=== PATIENT | male | born 1970 | race Caucasian/White ===

== ENCOUNTER 2017-03-03 08:25 | Inpatient (IN) | payer BC ==
[~2017-03-03] VITALS: Ht 180.3 cm; Wt 122.5 kg
[~2017-03-03 08:25] MED LIST: AMLO10TA2 PO; ASPI-612 PO; ASPI-630 PO; ATOR20TA PO; ATOR20TA58 PO; CARV3.12 PO; FENO134C PO; FLUO20CA8 PO; LISI-334 PO; LISINOPRIL-HCTZ PO; Lisinopril PO; METF500T4 PO; METO100T2 PO; METO50TA2 PO; METR500T8 PO; PANT40TA3 PO; PANT40TA5 PO; PROM25TA10 PO
--- NOTE | 2017-03-03 08:53 | EKG ---
[address] [address] Test Date: 2017-03-03 Test Time: 08:39:15 Pat Name: AUGUSTINA CERVANTES Department: Room: Gender: M [employer]ist: BRENTON : 1970 Requested By: LEATHA CORTES Order Number: [id number] Reading MD: Measurements Intervals [place] Rate: 90 P: 38 MA: 148 QRS: 113 QRSD: 102 T: -25 QT: 362 QTc: 447 Interpretive Statements SINUS RHYTHM ABNORMAL RIGHT AXIS DEVIATION CONSIDER RIGHT VENTRICULAR HYPERTROPHY QRS(T) CONTOUR ABNORMALITY CONSIDER ANTEROLATERAL MYOCARDIAL DAMAGE CANNOT RULE OUT INFERIOR MYOCARDIAL DAMAGE RI6.01 Unconfirmed report No previous ECG available for comparison
--- NOTE | 2017-03-03 09:06 | RAD ---
Chest, 2 views, 03/03/2017: History: Chest pressure Comparison is made to a study from 11/01/2016. The heart size and pulmonary vascularity are normal. No pulmonary infiltrates are seen. There is no evidence of pleural fluid. Moderate hypertrophic spurring is present in the spine. IMPRESSION: No acute cardiopulmonary abnormality is detected.
[2017-03-03 09:09] LABS: BASO # 0.1 x10^3/uL (0.0-0.2); BASO % 1 % (0-3); EOS # 0.3 x10^3/uL (0.0-0.7); EOS % 4 % (0-3); HEMATOCRIT 43.6 % (39.0-53.0); HEMOGLOBIN 14.7 g/dL (13.0-17.5); LYMPH # 2.7 x10^3/uL (1.0-4.8); LYMPH % 32 % (24-48); MEAN CORPUSCULAR HEMOGLOBIN 26 pg (25-35); MEAN CORPUSCULAR HGB CONC 34 g/dL (31-37); MEAN CORPUSCULAR VOLUME 77 fL (79-100); MONO # 0.4 x10^3/uL (0.0-1.1); MONO % 5 % (0-9); NEUT # 4.9 x10^3uL (1.8-7.7); NEUT % 59 % (31-73); PLATELET COUNT 139 x10^3/uL (140-400); RED BLOOD COUNT 5.66 x10^6/uL (4.30-5.70); RED CELL DISTRIBUTION WIDTH 13.8 % (11.5-14.5); WHITE BLOOD COUNT 8.3 x10^3/uL (4.0-11.0)
--- NOTE | 2017-03-03 09:22 | ED.ADGEN ---
Past History Past Medical History: Diabetes, High Cholesterol, Hypertension, DC, Other Past Surgical History: No Surgical History Smoking: Cigarettes, Less than 1pk/day Alcohol Use: None Drug Use: None Adult General Chief Complaint Chief Complaint Chest pressure HPI HPI Patient is a 46-year-old male history of hypertension, dyslipidemia, diabetes and tobaccoism presents with central chest pain pressure for the past 12 hours and witnessed syncopal episode while at work. Patient was standing at the time of syncope. He denies hitting his head, headache, chest pain, shortness breath or palpitations preceding episode. Patient noted be hypertensive on ED arrival. Blood pressure is 165/100. Patient states he did not take his medications prior to ED arrival. Denies leg pain swelling DVT or PE. Patient's father had an DC under age 50. Review of Systems Review of Systems ROS as per HPI. Current Medications Current Medications Current Medications Medications (Trade) Dose Ordered Sig/Brenda Start Time Stop Time Status Last Admin Dose Admin Aspirin (Aspirin Enteric Coated) 324 mg 1X ONCE 03/03/17 09:30 03/03/17 09:30 DC Aspirin (Children'S Aspirin) 81 mg STK-MED ONCE 03/03/17 09:24 03/03/17 09:25 DC Clonidine HCl (Catapres) 0.2 mg 1X ONCE 03/03/17 09:40 03/03/17 09:41 DC 03/03/17 09:29 0.2 MG Famotidine (Pepcid) 20 mg 1X ONCE 03/03/17 09:40 03/03/17 09:41 DC 03/03/17 09:28 20 MG Nitroglycerin (Nitrostat) 0.4 mg 1X ONCE 03/03/17 09:30 03/03/17 09:31 DC Allergies Allergies Allergies Coded Allergies Type Severity Reaction Last Updated Verified No Known Drug Allergies 11/17/13 No Physical Exam Physical Exam Constitutional: Well developed, well nourished, no acute distress, non-toxic appearance. HENT: Normocephalic, atraumatic, bilateral external ears normal, oropharynx moist, no oral exudates, nose normal. Eyes: PERRLA, EOMI, conjunctiva normal. Neck: Normal range of motion, no tenderness, supple. Cardiovascular:Heart rate regular rhythm, no murmur. Lungs & Thorax: Bilateral breath sounds clear to auscultation. Abdomen: Bowel sounds normal, soft, no tenderness. Skin: Warm, dry,. Back: No tenderness. Extremities: No tenderness. Neurologic: Alert and oriented X 3, normal motor function, normal sensory function, no focal deficits noted. Psychologic: Affect normal, judgement normal, mood normal. Current Patient Data Vital Signs Vital Signs Date Time Temp Pulse Resp B/P (MAP) Pulse Ox O2 Delivery O2 Flow Rate FiO2 03/03/17 09:29 82 165/107 03/03/17 08:35 98.7 18 97 Room Air Lab Results Laboratory Tests Test 03/03/17 08:40 03/03/17 08:55 Glucose (Fingerstick) 309 mg/dL (70-99) H White Blood Count 8.3 x10^3/uL (4.0-11.0) Red Blood Count 5.66 x10^6/uL (4.30-5.70) Hemoglobin 14.7 g/dL (13.0-17.5) Hematocrit 43.6 % (39.0-53.0) Mean Corpuscular Volume 77 fL (79-100) L Mean Corpuscular Hemoglobin 26 pg (25-35) Mean Corpuscular Hemoglobin Concent 34 g/dL (31-37) Red Cell Distribution Width 13.8 % (11.5-14.5) Platelet Count 139 x10^3/uL (140-400) L Neutrophils (%) (Auto) 59 % (31-73) Lymphocytes (%) (Auto) 32 % (24-48) Monocytes (%) (Auto) 5 % (0-9) Eosinophils (%) (Auto) 4 % (0-3) H Basophils (%) (Auto) 1 % (0-3) Neutrophils # (Auto) 4.9 x10^3uL (1.8-7.7) Lymphocytes # (Auto) 2.7 x10^3/uL (1.0-4.8) Monocytes # (Auto) 0.4 x10^3/uL (0.0-1.1) Eosinophils # (Auto) 0.3 x10^3/uL (0.0-0.7) Basophils # (Auto) 0.1 x10^3/uL (0.0-0.2) D-Dimer (Hue) 0.45 mg/L (0.00-0.50) Sodium Level 139 mmol/L (136-145) Potassium Level 3.6 mmol/L (3.5-5.1) Chloride Level 103 mmol/L (98-107) Carbon Dioxide Level 27 mmol/L (21-32) Anion Gap 9 (6-14) Blood Urea Nitrogen 14 mg/dL (8-26) Creatinine 0.9 mg/dL (0.7-1.3) Estimated GFR (Cockcroft-Gault) 90.4 BUN/Creatinine Ratio 16 (6-20) Glucose Level 284 mg/dL (70-99) H Calcium Level 9.2 mg/dL (8.5-10.1) Total Bilirubin 0.4 mg/dL (0.2-1.0) Aspartate Amino Transferase (AST) 11 U/L (15-37) L Alanine Aminotransferase (ALT) 18 U/L (16-63) Alkaline Phosphatase 103 U/L (46-116) Creatine Kinase 53 U/L (39-308) Troponin I Quantitative < 0.017 ng/mL (0-0.055) Total Protein 7.2 g/dL (6.4-8.2) Albumin 3.3 g/dL (3.4-5.0) L Albumin/Globulin Ratio 0.8 (1.0-1.7) L EKG EKG [EKG: Normal sinus rhythm, rate 90, right ventricular hypertrophy, inferior T wave inversion and ST depression] Radiology/Procedures Radiology/Procedures [Chest x-ray: No acute cardiopulmonary disease] Course & Med Decision Making Course & Med Decision Making Pertinent Labs and Imaging studies reviewed. (See chart for details) [Substernal chest pressure with prehospital syncope. Patient denies QUEZADA, no neuro deficits on exam. EKG show LVH with inf st-t wave changes. CP resolved prior to treatment. BP improved with tx. In addition, home blood pressure medications given. Dr. Lacey to admit. ] Final Impression Final Impression [1. Chest pressure 2. Accelerated HTN] Problems: Dragon Disclaimer Dragon Disclaimer This electronic medical record was generated, in whole or in part, using a voice recognition dictation system. LEATHA CORTES DO Mar 03, 2017 09:22
[2017-03-03 09:24] LABS: ALBUMIN 3.3 g/dL (3.4-5.0); ALBUMIN/GLOBULIN RATIO 0.8 (1.0-1.7); CALCIUM 9.2 mg/dL (8.5-10.1); CREATININE 0.9 mg/dL (0.7-1.3); GFR 90.4; POTASSIUM 3.6 mmol/L (3.5-5.1); TOTAL BILIRUBIN 0.4 mg/dL (0.2-1.0); TOTAL PROTEIN 7.2 g/dL (6.4-8.2)
[2017-03-03] MEDS ORDERED: ASPIRIN 81 MG TAB.CHEW ONE (09:24)
[2017-03-03] MEDS ORDERED: NITROGLYCERIN SUBLINGUAL 0.4 MG BOTTLE OF 25. SL ONE (09:30)
[2017-03-03] MEDS ORDERED: ASPIRIN ENTERIC COATED 325 MG TABLET.DR. PO ONE (09:30)
[2017-03-03] MEDS ORDERED: FAMOTIDINE 20 MG/2 ML VIAL IVP ONE (09:40)
[2017-03-03] MEDS ORDERED: ASPIRIN 81 MG TAB.CHEW PO ONE (09:40)
[2017-03-03] MEDS ORDERED: cloNIDine HCL 0.1 MG TABLET PO ONE (09:40)
[2017-03-03] MEDS ORDERED: MORPHINE SULFATE 2 MG/ML DISP.SYRIN. IV PRN (13:00)
[2017-03-03] MEDS ORDERED: ONDANSETRON PF 4 MG/2 ML VIAL. IV PRN (13:00)
[2017-03-03] MEDS ORDERED: ACETAMINOPHEN 325 MG TABLET PO PRN (13:00)
[2017-03-03] MEDS ORDERED: KETOROLAC 30 MG/ML VIAL. IV PRN (13:00)
[2017-03-03 13:14] VITALS: BP 142/91
[2017-03-03] MEDS: NICOTINE 21MG PATCH. TD SCH (13:39)
[2017-03-03] MEDS: ALPRAZolam 0.25 MG TABLET PO PRN (13:39)
[2017-03-03 19:30] VITALS: BP 161/96
[2017-03-03] MEDS: METOPROLOL TART IMMED RELEASE 50 MG TABLET PO SCH (20:57)
[2017-03-04 06:00] VITALS: BP 151/94
[2017-03-04 06:22] LABS: BASO # 0.1 x10^3/uL (0.0-0.2); BASO % 1 % (0-3); EOS # 0.4 x10^3/uL (0.0-0.7); EOS % 4 % (0-3); HEMATOCRIT 42.7 % (39.0-53.0); HEMOGLOBIN 14.3 g/dL (13.0-17.5); LYMPH # 3.2 x10^3/uL (1.0-4.8); LYMPH % 36 % (24-48); MEAN CORPUSCULAR HEMOGLOBIN 26 pg (25-35); MEAN CORPUSCULAR HGB CONC 33 g/dL (31-37); MEAN CORPUSCULAR VOLUME 78 fL (79-100); MONO # 0.5 x10^3/uL (0.0-1.1); MONO % 5 % (0-9); NEUT # 4.7 x10^3uL (1.8-7.7); NEUT % 53 % (31-73); PLATELET COUNT 131 x10^3/uL (140-400); RED BLOOD COUNT 5.49 x10^6/uL (4.30-5.70); RED CELL DISTRIBUTION WIDTH 13.7 % (11.5-14.5); WHITE BLOOD COUNT 8.7 x10^3/uL (4.0-11.0)
[2017-03-04 06:33] LABS: CALCIUM 9.1 mg/dL (8.5-10.1); CREATININE 0.8 mg/dL (0.7-1.3); GFR 103.6; POTASSIUM 3.8 mmol/L (3.5-5.1)
[2017-03-04] MEDS ORDERED: PANTOPRAZOLE 40 MG TABLET. PO SCH (07:30)
[2017-03-04] MEDS: NICOTINE 21MG PATCH. TD SCH (07:44)
[2017-03-04] MEDS: METOPROLOL TART IMMED RELEASE 50 MG TABLET PO SCH (07:45)
[2017-03-04] MEDS: ALPRAZolam 0.25 MG TABLET PO PRN (07:45)
[2017-03-04] MEDS ORDERED: metFORMIN 500 MG TABLET PO SCH (08:00)
[2017-03-04] MEDS ORDERED: amLODIPine BESYLATE 10 MG TABLET PO SCH (09:00)
[2017-03-04] MEDS ORDERED: FENOFIBRATE NANOCRYSTALLIZED 145 MG TABLET PO SCH (09:00)
[2017-03-04] MEDS ORDERED: LISINOPRIL 20 MG TABLET PO SCH ×2 (09:00→21:00)
[2017-03-04] MEDS ORDERED: FLUoxetine HCL 20 MG CAPSULE PO SCH (09:00)
[2017-03-04] MEDS ORDERED: ASPIRIN 81 MG TAB.CHEW PO SCH (09:00)
--- NOTE | 2017-03-04 09:40 | PDOC2 ---
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 He has a past medical history of coronary artery disease status post angioplasty and stent placement, hypertension, hyperlipidemia, gastroesophageal reflux disease, tobacco abuse, diabetes mellitus type 2 and abnormal EKG. Over the weekend on Friday and Friday he was having problems with feeling poorly -tired, slightly feverish diaphoretic and laid in bed most of the weekend. On Friday he developed epigastric/substernal chest discomfort that felt like a heavy sensation. It was not related to activity and occurred while at rest it did not radiate. It was not associated with any shortness of breath, nausea, vomiting or diaphoresis. It was there all day on Friday and progressively got worse yesterday while he was at work. 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 He does not remember getting lightheaded or dizzy to, just remembers waking up on the floor. His boss was there and says he was just out for a few seconds and woke up oriented. He did not lose control of his bowel or bladder or was disoriented when he woke up. She called EMS to bring him to the emergency room for evaluation. Prior to Friday he had been doing well and not having any problems with change in function, chest pain or shortness of breath. He denies any PND, orthopnea or lower extremity edema. REVIEW OF SYSTEM: He denies any fever or weight change or malaise. + viral symptoms. He denies any diarrhea vomiting hematemesis or melena. He denies any exertional chest pain shortness of breath and pedal edema PND or orthopnea. Rest of the 12 point review of systems negative. PREVIOUS MEDICAL/Surgical HISTORY He gives a history of angioplasty but not stands around "10 years ago". The details of this are not available. Apparently this was done at [facility]. He gives a history of diabetes for 13 years. He has hypertension and hyperlipidemia and there is no history of strokes. There is no history of congestive heart failure. SOCIAL HISTORY: He lives with his mother. He denies use of any alcohol. Unfortunately he continues to smoke. Medications This was reviewed and noted below FAMILY HISTORY His father had coronary disease and of congestive heart failure in the 60s. PHYSICAL EXAM Constitutional: Well developed, well nourished, no acute distress, non-toxic appearance. HENT: Normocephalic, atraumatic, bilateral external ears normal, oropharynx moist, no oral exudates, nose normal. Eyes: RUFINO, EOMI, conjunctiva normal, no discharge. Neck: Normal range of motion, no tenderness, supple, no stridor. Cardiovascular: Normal first and second heart sounds. There are no murmurs rubs or gallops Thorax and Lungs: Normal chest expansion with equal breath sounds bilaterally without any adventitious sounds. Abdomen: Bowel sounds normal, soft, no tenderness, no masses, no pulsatile masses. Skin: Warm, dry, no erythema, no rash. Back: No tenderness, no CVA tenderness. Extremities: Intact distal pulses, no tenderness, no cyanosis, no clubbing, ROM intact, no edema. Neurologic: Alert and oriented X 3, normal motor function, normal sensory function, no focal deficits noted. Psychologic: Affect normal, judgement normal, mood normal. EKG: Sinus rhythm. There is ST and T-wave depression in the inferior leads. IMPRESSION Chest pain - TX ruled out. Plan for OP echo and stress test. Believe his chest pain was GI in origin Syncope - No arrhythmias - Plan for 2 week event monitor. Hypertension: Elevated - Increase Lisinopril to twice a day Coronary artery disease: He gives a history of angioplasty without a stent around 10 years ago. Plan for op stress test Tobacco abuse: I have counseled him and offered him Chantix Diabetes: Per Dr. Blair. Obesity: I have counseled him Hyperlipidemia: We will check his fasting lipids. He does not appear to be on any statins Abnormal EKG: He will need a stress marker perfusion scan as an outpatient Current Medications Current Medications Nitroglycerin (Nitrostat) 0.4 mg 1X ONCE SL ; Start 03/03/17 at 09:30; Stop 06/10 at 09:31; Status DC Aspirin (Aspirin Enteric Coated) 324 mg 1X ONCE PO ; Start 03/03/17 at 09:30; Stop 03/03/17 at 09:30; Status DC Clonidine HCl (Catapres) 0.2 mg 1X ONCE PO Last administered on 03/03/17 09: 29; Start 03/03/17 at 09:40; Stop 03/03/17 at 09:41; Status DC Famotidine (Pepcid) 20 mg 1X ONCE IVP Last administered on 03/03/17 09:28; Start 03/03/17 at 09:40; Stop 03/03/17 at 09:41; Status DC Aspirin (Children'S Aspirin) 324 mg 1X ONCE PO Last administered on 03/03/17 09:29; Start 03/03/17 at 09:40; Stop 03/03/17 at 09:41; Status DC Aspirin (Children'S Aspirin) 81 mg STK-MED ONCE .ROUTE ; Start 03/03/17 at 09:24 ; Stop 03/03/17 at 09:25; Status DC Acetaminophen (Tylenol) 650 mg PRN Q6HRS PRN PO Headaches, Temp > 101.5F; Start 03/03/17 at 13:00 Ketorolac Tromethamine (Toradol) 30 mg PRN Q6HRS PRN IV PAIN; Start 03/03/17 at 13:00; Stop 03/08/17 at 12:59 Morphine Sulfate (Morphine 2mg Syringe) 2 mg PRN Q1HR PRN IV PAIN; Start at 13:00 Ondansetron HCl (Zofran) 4 mg PRN Q8HRS PRN IV NAUSEA/VOMITING; Start 03/03/17 at 13:00 Alprazolam (Xanax) 0.25 mg PRN Q8HRS PRN PO ANXIETY / AGITATION Last administered on 03/04/17 07:45; Start 03/03/17 at 13:15 Nicotine (Nicoderm Cq 21mg) 1 patch DAILY TD Last administered on 03/04/17 07: 44; Start 03/03/17 at 13:45 Amlodipine Besylate (Norvasc) 10 mg DAILY PO Last administered on 03/04/17 07: 45; Start 03/04/17 at 09:00 Aspirin (Children'S Aspirin) 81 mg DAILY PO Last administered on 03/04/17 07: 45; Start 03/04/17 at 09:00 Fluoxetine HCl (PROzac) 20 mg DAILY PO Last administered on 03/04/17 07:46; Start 03/04/17 at 09:00 Lisinopril (Prinivil) 20 mg DAILY PO Last administered on 03/04/17 07:45; Start 03/04/17 at 09:00 Metformin HCl (Glucophage) 1,000 mg BIDWMEALS PO Last administered on 07:44; Start 03/04/17 at 08:00 Pantoprazole Sodium (Protonix) 40 mg DAILYAC PO Last administered on 03/04/17 07:45; Start 03/04/17 at 07:30 Fenofibrate (Tricor) 145 mg DAILY PO Last administered on 03/04/17 07:45; Start 03/04/17 at 09:00 Metoprolol Tartrate (Lopressor) 100 mg BID PO Last administered on 03/04/17 07 :45; Start 03/03/17 at 21:00 Active Scripts Active Pantoprazole Sodium 40 Mg Tablet.dr 40 Mg PO DAILYAC Lisinopril 20 Mg Tablet 20 Mg PO DAILY Reported Metoprolol Tartrate 100 Mg Tablet 1 Tab PO BID Fluoxetine Hcl 20 Mg Capsule 1 Cap PO DAILY Fenofibrate (Fenofibrate,Micronized) 134 Mg Capsule 160 Mg PO DAILY Aspirin 81 Mg Tab.chew 81 Mg PO DAILY Amlodipine Besylate 10 Mg Tablet 1 Tab PO DAILY last dose this morning next dose tomorrow TIME: NEXT DOSE DUE: DATE: TIME: Metformin Hcl 500 Mg Tablet 1,000 Mg PO BIDWMEALS last dose this morning next dose this evening TIME: NEXT DOSE DUE: DATE: TIME: Allergies: Coded Allergies: No Known Drug Allergies (Unverified , 11/17/13) VITALS Vital Signs Date Time Temp Pulse Resp B/P (MAP) Pulse Ox O2 Delivery O2 Flow Rate FiO2 03/04/17 08:00 Room Air 03/04/17 07:45 76 03/04/17 06:00 97.2 20 151/94 (113) 94 Labs Laboratory Tests Test 03/03/17 08:40 03/03/17 08:55 03/03/17 12:01 03/03/17 14:30 Glucose (Fingerstick) 309 mg/dL (70-99) White Blood Count 8.3 x10^3/uL (4.0-11.0) Red Blood Count 5.66 x10^6/uL (4.30-5.70) Hemoglobin 14.7 g/dL (13.0-17.5) Hematocrit 43.6 % (39.0-53.0) Mean Corpuscular Volume 77 fL (79-100) Mean Corpuscular Hemoglobin 26 pg (25-35) Mean Corpuscular Hemoglobin Concent 34 g/dL (31-37) Red Cell Distribution Width 13.8 % (11.5-14.5) Platelet Count 139 x10^3/uL (140-400) Neutrophils (%) (Auto) 59 % (31-73) Lymphocytes (%) (Auto) 32 % (24-48) Monocytes (%) (Auto) 5 % (0-9) Eosinophils (%) (Auto) 4 % (0-3) Basophils (%) (Auto) 1 % (0-3) Neutrophils # (Auto) 4.9 x10^3uL (1.8-7.7) Lymphocytes # (Auto) 2.7 x10^3/uL (1.0-4.8) Monocytes # (Auto) 0.4 x10^3/uL (0.0-1.1) Eosinophils # (Auto) 0.3 x10^3/uL (0.0-0.7) Basophils # (Auto) 0.1 x10^3/uL (0.0-0.2) D-Dimer (Hue) 0.45 mg/L (0.00-0.50) Sodium Level 139 mmol/L (136-145) Potassium Level 3.6 mmol/L (3.5-5.1) Chloride Level 103 mmol/L (98-107) Carbon Dioxide Level 27 mmol/L (21-32) Anion Gap 9 (6-14) Blood Urea Nitrogen 14 mg/dL (8-26) Creatinine 0.9 mg/dL (0.7-1.3) Estimated GFR (Cockcroft-Gault) 90.4 BUN/Creatinine Ratio 16 (6-20) Glucose Level 284 mg/dL (70-99) Calcium Level 9.2 mg/dL (8.5-10.1) Magnesium Level 1.8 mg/dL (1.8-2.4) 1.9 mg/dL (1.8-2.4) Total Bilirubin 0.4 mg/dL (0.2-1.0) Aspartate Amino Transf (AST/SGOT) 11 U/L (15-37) Alanine Aminotransferase (ALT/SGPT) 18 U/L (16-63) Alkaline Phosphatase 103 U/L (46-116) Creatine Kinase 53 U/L (39-308) Troponin I Quantitative < 0.017 ng/mL (0-0.055) 0.017 ng/mL (0-0.055) Total Protein 7.2 g/dL (6.4-8.2) Albumin 3.3 g/dL (3.4-5.0) Albumin/Globulin Ratio 0.8 (1.0-1.7) Nasal Screen MRSA (PCR) Negative (Negative) Test 03/03/17 20:35 03/03/17 21:00 03/04/17 05:39 Troponin I Quantitative < 0.017 ng/mL (0-0.055) Glucose (Fingerstick) 258 mg/dL (70-99) White Blood Count 8.7 x10^3/uL (4.0-11.0) Red Blood Count 5.49 x10^6/uL (4.30-5.70) Hemoglobin 14.3 g/dL (13.0-17.5) Hematocrit 42.7 % (39.0-53.0) Mean Corpuscular Volume 78 fL (79-100) Mean Corpuscular Hemoglobin 26 pg (25-35) Mean Corpuscular Hemoglobin Concent 33 g/dL (31-37) Red Cell Distribution Width 13.7 % (11.5-14.5) Platelet Count 131 x10^3/uL (140-400) Neutrophils (%) (Auto) 53 % (31-73) Lymphocytes (%) (Auto) 36 % (24-48) Monocytes (%) (Auto) 5 % (0-9) Eosinophils (%) (Auto) 4 % (0-3) Basophils (%) (Auto) 1 % (0-3) Neutrophils # (Auto) 4.7 x10^3uL (1.8-7.7) Lymphocytes # (Auto) 3.2 x10^3/uL (1.0-4.8) Monocytes # (Auto) 0.5 x10^3/uL (0.0-1.1) Eosinophils # (Auto) 0.4 x10^3/uL (0.0-0.7) Basophils # (Auto) 0.1 x10^3/uL (0.0-0.2) Sodium Level 140 mmol/L (136-145) Potassium Level 3.8 mmol/L (3.5-5.1) Chloride Level 104 mmol/L (98-107) Carbon Dioxide Level 30 mmol/L (21-32) Anion Gap 6 (6-14) Blood Urea Nitrogen 19 mg/dL (8-26) Creatinine 0.8 mg/dL (0.7-1.3) Estimated GFR (Cockcroft-Gault) 103.6 Glucose Level 217 mg/dL (70-99) Calcium Level 9.1 mg/dL (8.5-10.1) Magnesium Level 2.0 mg/dL (1.8-2.4) PRABHJOT DURÁN Jr, MD 03/05/17 0632: CONSULT Allergies: Coded Allergies: No Known Drug Allergies (Unverified , 11/17/13) Assessment/Plan The patient was seen by Wayne Arzate APRN and I have reviewed her findings and plan and agree with above. Due to staffing constraints, we did not have an attending available on this day to see the patient. Problems: WAYNE ARZATE APRN Mar 04, 2017 09:40 PRABHJOT DURÁN Jr, MD Mar 05, 2017 06:32
[2017-03-04] MEDS ORDERED: LISI-334 PO (10:17)
[2017-03-04] MEDS ORDERED: PANT40TA5 PO (10:18)
--- NOTE | 2017-03-05 02:18 | ACF ---
Admission Criteria Forms CARDIOLOGY GRG Clinical Indications for Admission to Inpatient Care ( Place 'X' for any and all applicable criteria): Hospital admission is needed for appropriate care of the patient because of ANY ONE of the following (1): [ ] I. Hemodynamic instability as indicated by ALL of the following (1)(2)(3) (4)(5) [ ]a) Vital signs or other findings not as expected for chronic patient condition or baseline [ ]b) Instability indicated by ANY ONE of the following: [ ]i) Hypotension [ ]ii) Symptomatic Tachycardia unresponsive to treatment ( e.g., analgesia, fluids, sedation as indicated) [ ]iii) Inadequate perfusion indicated by ANY ONE of the following: [ ] 1) Lactic acidosis (> 2 mmol/L) [ ] 2) New abnormal capillary refill (> 3 seconds) [ ] 3) Reduced urine output [ ] 4) New altered mental status [ ]iv) Orthostatic vital sign changes unresponsive to treatment (e.g., fluids) [ ]v) IV inotropic or vasopressor medication required to maintain adequate blood pressure or perfusion [ ] II. Severe heart failure as indicated by ANY ONE of the following(17)(18) [ ]a) Respiratory distress [ ]b) Hypotension [ ]c) Anasarca (refractory to outpatient therapy) [ ]d) Cardiac arrhythmias of immediate concern [ ]e) Myocardial ischemia [ ] III. Cardiac arrhythmias or findings of immediate concern indicated by ANY ONE of the following (19)(20): [ ] a) Heart rhythms that are inherently dangerous or unstable indicated by ANY ONE of the following (21)(22)(23): [ ] i) Resuscitated ventricular fibrillation or cardiac arrest [ ] ii) Ventricular escape rhythm [ ] iii) Sustained ventricular tachycardia (30 seconds or more of ventricular rhythm at greater than 100 beats per minute) [ ] iv) Nonsustained ventricular tachycardia and ANY ONE of the following: [ ] 1) Suspected cardiac ischemia as cause or consequence of ventricular tachycardia [ ] 2) In setting of acute myocarditis [ ] b) Unstable cardiac conduction defects indicated by ANY ONE of the following(23)(24)(25) [ ] i) Type II second-degree atrioventricular block [ ]ii) Third-degree atrioventricular block [ ]iii) New-onset left bundle branch block with suspected myocardial ischemia [ ]c) Any heart rhythm and ANY ONE of the following (21)(22)(26)(27) (28) [ ] i) Continuous long-term ECG monitoring needed (e.g., initiation of drug requiring monitoring for more than 24 hours) [ ] ii) Patient has automatic implanted cardioverter defibrillator that is repeatedly firing, malfunctioning, or in need of immediate adjustment of settings beyond the scope of ambulatory or observation care [ ]d) Heart rhythms of concern due to ANY ONE of the following: [ ] i) Hypotension [ ] ii) Respiratory distress [ ] iii) Association with other significant symptoms (e.g., bradycardia with syncope or ongoing dizziness, supraventricular tachycardia with chest pain (14)(15)(17) [ ] IV. Monitoring for cardiac contusion beyond the scope of observation care needed [A](30)(31)(32) [ ] V. Surgical or device complication (e.g., valve replacement complication , pacemaker dysfunction) (35)(41)(44)(45)(46) [ ] . Inpatient palliative care needed. [B](49) Also use Inpatient Palliative Care Criteria [ ] VII. Nonbacterial thrombotic (marantic) endocarditis (36)(43)(47)(48) [X ] VIII. Cardiology condition, symptom, or finding for which emergency and observation care has failed or are not considered appropriate. [ ] IX. Acute valvular disease requiring inpatient as indicated by ANY ONE of the following (41) [ ]a) Acute valvular regurgitation (42) [ ]b) Noninfectious valvulitis (43) [ ]c) Obstructive valve thrombosis [ ]d) Paravalvular leak [ ]e) Other significant valvular disorder remaining after emergency or observation level of care (as appropriate) [ ]X. Pericardial disease requiring inpatient treatment as indicated by ANY ONE of the following (33)(34)(35)(36)(37) [ ]a) Suspected tamponade (38)(39)(40) [ ]b) Hemopericardium [ ]c) Other significant pericardial disorder remaining after emergency or observation level of care (as appropriate) [ ] XI. Cardiac ischemia beyond scope of emergency and observation care. [ ] XII. Hypertension requiring inpatient treatment as indicated by ANY ONE of the following (6)(7)(8) [ ]a) SBP greater than 220 mm Hg or DBP greater than 120 mmHg despite treatment [ ]b) SBP greater than 140 mm Hg or DBP greater than 100 mm Hg with evidence of acute end organ damage as indicated by ANY ONE of the following [ ] i) Encephalopathy [ ] ii) Acute renal failure as indicated by new onset of ANY ONE of the following (9)(10)(11)(12)(13) [ ]1) 3-fold rise in serum creatinine from baseline [ ]2) Serum creatinine greater than 4 mg/dL ( 354 micromoles/L) with acute rise greater than 0.5 mg/dL (44.2 micromoles/L) [ ]3) Reduction of more than 75% in estimated glomerular filtration rate from baseline [ ]4) Estimated glomerular filtration rate less than 35 mL/min/1.73m2 (0.59 mL/sec/1.73m2) in child up to 18 years of age [ ]5) Cessation of urine output indicated by ALL of the following [ ]A. Adequate volume status [ ]B. Inadequate urine output as indicated by ANY ONE of the following [ ]a. Urine output less than 0.3 mL/kg/hr for 24 hours [ ]b. Anuria (urine output less than 0.1 mL/kg/hr) for 12 hours [ ] iii) Aortic dissection [ ] iv) Myocardial Ischemia [ ] v) Left ventricular heart failure [ ]vi) Retinal Hemorrhage [ ]vii) Other significant finding [ ]c) Hypertension in child requiring inpatient treatment as indicated by ALL of the following(14)(15)(16) [ ] i) Outpatient treatment not effective, not available, or not appropriate [ ]ii) SBP or DBP greater than 95th percentile for age [ ]iii) Evidence of acute end organ damage as indicated by ANY ONE of the following [ ]1) Altered mental status [ ]2) Acute renal failure as indicated by new onset of ANY ONE of the following(9)(10)(11)(12)(13) [ ]A. 3-fold rise in serum creatinine from baseline [ ]B. Serum creatinine greater than 4 mg/dL (354 micromoles/L) with acute rise greater than 0.5 mg/dL (44.2 micromoles/L) [ ]C. Reduction of more than 75% in estimated glomerular filtration rate from baseline [ ]D. Estimated glomerular filtration rate less than 35 mL/min/1.73m2 (0.59 mL/sec/1.73m2) in child up to 18 years of age [ ]E. Cessation of urine output indicated by ALL of the following [ ]a. Adequate volume status [ ]b. Inadequate urine output as indicated by ANY ONE of the following [ ]i) Urine output less than 0.3 mL/kg/hr for 24 hours [ ]ii) Anuria ( urine output less than 0.1 mL/kg/hr) for 12 hours [ ]3) Severe headache [ ]4) Visual disturbance [ ]5) Retinal hemorrhage [ ]6) Other significant finding [ ]XIII. Complications of transplanted heart indicated by ANY ONE of the following(61): [ ]a) Acute graft rejection requiring inpatient management (eg, intravenous immunosuppression)(62)(63) [ ]b) Acute graft heart failure indicated by ANY ONE of the following(64): [ ]i) Hemodynamic instability [ ]ii) Cardiac arrhythmias of immediate concern [ ]iii) Pulmonary edema that is very severe (eg, mechanical ventilation needed, imminent or likely, need for 100% oxygen to keep oxygen saturation above 90%) [ ]iv) Pulmonary edema that is persistent as indicated by ALL of the following: [ ]1) New need for oxygen therapy to keep oxygen saturation above 90% (or increased FiO2 need from baseline) [ ]2) Has not improved sufficiently with emergency department or observation care IV diuretics or other heart failure treatments[E] [ ]v) Altered mental status that is severe or persistent [ ]vi) Increased creatinine (new on laboratory test) with reduction of more than 50% in estimated glomerular filtration rate from baseline [ ]vii) Progressively (ongoing) rising creatinine (known from past laboratory test) with reduction of more than 25% in estimated glomerular filtration rate from baseline [ ]viii) Acute renal failure [ ]ix) Acute peripheral ischemia (eg, examination shows pulseless, cool, mottled, or cyanotic extremity) [ ]x) Pulmonary artery catheter monitoring needed [ ]xi) Other sign or symptom of heart failure requiring inpatient treatment (ie, too severe or not responsive to outpatient and observation care treatment) [ ]c) Infection requiring inpatient management (eg, Hemodynamic instability, need for intravenous antimicrobial treatment)(66)(67)(68)(69)(70) [ ]d) Cardiac allograft vasculopathy requiring inpatient management ( eg evidence of cardiac ischemia)(71) [ ]e) Other complication of transplanted heart (eg, stroke, severe pulmonary hypertension, severe valvular dysfunction) requiring inpatient management(72) The original [facility] content created by [facility] has been revised. The portions of the content which have been revised are identified through the use of italic text or in bold, and [facility] has neither reviewed nor approved the modified material. All other unmodified content is copyright [facility]. Please see references footnoted in the original [facility] edition 2016 Admission Criteria Met?: Yes LYNN CHUNG Mar 05, 2017 02:18
--- NOTE | 2017-03-05 09:32 | PDOC1 ---
HISTORY & PHYSICAL HPI: HPI: [place] [id number] [place] [id number] Patient: AUGUSTINA CERVANTES Acct:[id number] Unit: [id number] : 1970 Loc: ICU Room/Bed: ICU06-1 Age/Sex: 46 / M ADM Status: DIS IN ADM Date: 03/03/17 Dr Blair Chief Complaint Chest pain and Syncope History of Present Illness Reason for consultation: Chest pain and Syncope History of present illness - 46-year-old male who presented to the emergency room via EMS after having a syncopal episode at work. He has a past medical history of coronary artery disease status post angioplasty and stent placement, hypertension, hyperlipidemia, gastroesophageal reflux disease, tobacco abuse, diabetes mellitus type 2 and abnormal EKG. 2 days prior to admission beghan to feel tired feel poorly felt slightly feverish and diaphoretic when day prior to admission he began to develop substernal chest discomfort to activity is nonradiating folic heavy sensation is not associated with any nausea or vomiting however the chest discomfort became progressively worse Wallwork became lightheaded had episodes of syncope and he fell to the floor no signs of seizure activity into the emergency room for further evaluation and admitted for chest pain and syncope with cardiology consultation . REVIEW OF SYSTEM: He denies any fever or weight change or malaise. + viral symptoms. He denies any diarrhea vomiting hematemesis or melena. He denies any exertional chest pain shortness of breath and pedal edema PND or orthopnea. Rest of the 12 point review of systems negative. PREVIOUS MEDICAL/Surgical HISTORY angioplasty but not stands around "10 years ago". The details of this are not available. Apparently this was done at [facility]. He gives a history of diabetes for 13 years. He has hypertension and hyperlipidemia and there is no history of strokes. There is no history of congestive heart failure. SOCIAL HISTORY: He lives with his mother. He denies use of any alcohol. Unfortunately he continues to smoke. Medications FAMILY HISTORY His father had coronary disease and of congestive heart failure in the 60s. PHYSICAL EXAM Constitutional: Well developed, well nourished, no acute distress, non-toxic appearance. HENT: Normocephalic, atraumatic, bilateral external ears normal, oropharynx moist, no oral exudates, nose normal. Eyes: RUFINO, EOMI, conjunctiva normal, no discharge. Neck: Normal range of motion, no tenderness, supple, no stridor. Cardiovascular: Normal first and second heart sounds. There are no murmurs rubs or gallops Thorax and Lungs: Normal chest expansion with equal breath sounds bilaterally without any adventitious sounds. Abdomen: Bowel sounds normal, soft, no tenderness, no masses, no pulsatile masses. Skin: Warm, dry, no erythema, no rash. Back: No tenderness, no CVA tenderness. Extremities: Intact distal pulses, no tenderness, no cyanosis, no clubbing, ROM intact, no edema. Neurologic: Alert and oriented X 3, normal motor function, normal sensory function, no focal deficits noted. Psychologic: Affect normal, judgement normal, mood normal. EKG: Sinus rhythm. There is ST and T-wave depression in the inferior leads. IMPRESSION Chest pain - DC ruled out. Plan for OP echo and stress test. Believe his chest pain was GI in origin Syncope - No arrhythmias - Plan for 2 week event monitor. Hypertension: Elevated - Increase Lisinopril to twice a day Coronary artery disease: He gives a history of angioplasty without a stent around 10 years ago. Plan for op stress test Tobacco abuse: I have counseled him and offered him Chantix Diabetes: Per Dr. Blair. Obesity: I have counseled him Hyperlipidemia: We will check his fasting lipids. He does not appear to be on any statins Abnormal EKG: He will need a stress marker perfusion scan as an outpatient Current Medications Current Medications Nitroglycerin (Nitrostat) 0.4 mg 1X ONCE SL ; Start 03/03/17 at 09:30; Stop 06/10 at 09:31; Status DC Aspirin (Aspirin Enteric Coated) 324 mg 1X ONCE PO ; Start 03/03/17 at 09:30; Stop 03/03/17 at 09:30; Status DC Clonidine HCl (Catapres) 0.2 mg 1X ONCE PO Last administered on 03/03/17 09: 29; Start 03/03/17 at 09:40; Stop 03/03/17 at 09:41; Status DC Famotidine (Pepcid) 20 mg 1X ONCE IVP Last administered on 03/03/17 09:28; Start 03/03/17 at 09:40; Stop 03/03/17 at 09:41; Status DC Aspirin (Children'S Aspirin) 324 mg 1X ONCE PO Last administered on 03/03/17 09:29; Start 03/03/17 at 09:40; Stop 03/03/17 at 09:41; Status DC Aspirin (Children'S Aspirin) 81 mg STK-MED ONCE .ROUTE ; Start 03/03/17 at 09:24 ; Stop 03/03/17 at 09:25; Status DC Acetaminophen (Tylenol) 650 mg PRN Q6HRS PRN PO Headaches, Temp > 101.5F; Start 03/03/17 at 13:00 Ketorolac Tromethamine (Toradol) 30 mg PRN Q6HRS PRN IV PAIN; Start 03/03/17 at 13:00; Stop 03/08/17 at 12:59 Morphine Sulfate (Morphine 2mg Syringe) 2 mg PRN Q1HR PRN IV PAIN; Start at 13:00 Ondansetron HCl (Zofran) 4 mg PRN Q8HRS PRN IV NAUSEA/VOMITING; Start 03/03/17 at 13:00 Alprazolam (Xanax) 0.25 mg PRN Q8HRS PRN PO ANXIETY / AGITATION Last administered on 03/04/17 07:45; Start 03/03/17 at 13:15 Nicotine (Nicoderm Cq 21mg) 1 patch DAILY TD Last administered on 03/04/17 07: 44; Start 03/03/17 at 13:45 Amlodipine Besylate (Norvasc) 10 mg DAILY PO Last administered on 03/04/17 07: 45; Start 03/04/17 at 09:00 Aspirin (Children'S Aspirin) 81 mg DAILY PO Last administered on 03/04/17 07: 45; Start 03/04/17 at 09:00 Fluoxetine HCl (PROzac) 20 mg DAILY PO Last administered on 03/04/17 07:46; Start 03/04/17 at 09:00 Lisinopril (Prinivil) 20 mg DAILY PO Last administered on 03/04/17 07:45; Start 03/04/17 at 09:00 Metformin HCl (Glucophage) 1,000 mg BIDWMEALS PO Last administered on 07:44; Start 03/04/17 at 08:00 Pantoprazole Sodium (Protonix) 40 mg DAILYAC PO Last administered on 03/04/17 07:45; Start 03/04/17 at 07:30 Fenofibrate (Tricor) 145 mg DAILY PO Last administered on 03/04/17 07:45; Start 03/04/17 at 09:00 Metoprolol Tartrate (Lopressor) 100 mg BID PO Last administered on 03/04/17 07 :45; Start 03/03/17 at 21:00 Active Scripts Active Pantoprazole Sodium 40 Mg Tablet.dr 40 Mg PO DAILYAC Lisinopril 20 Mg Tablet 20 Mg PO DAILY Reported Metoprolol Tartrate 100 Mg Tablet 1 Tab PO BID Fluoxetine Hcl 20 Mg Capsule 1 Cap PO DAILY Fenofibrate (Fenofibrate,Micronized) 134 Mg Capsule 160 Mg PO DAILY Aspirin 81 Mg Tab.chew 81 Mg PO DAILY Amlodipine Besylate 10 Mg Tablet 1 Tab PO DAILY last dose this morning next dose tomorrow TIME: NEXT DOSE DUE: DATE: TIME: Metformin Hcl 500 Mg Tablet 1,000 Mg PO BIDWMEALS last dose this morning next dose this evening TIME: NEXT DOSE DUE: DATE: TIME: Allergies: Coded Allergies: No Known Drug Allergies (Unverified , 11/17/13) VITALS Vital Signs Date Time Temp Pulse Resp B/P (MAP) Pulse Ox O2 Delivery O2 Flow Rate FiO2 03/04/17 08:00 Room Air 03/04/17 07:45 76 03/04/17 06:00 97.2 20 151/94 (113) 94 Labs Laboratory Tests Test 03/03/17 08:40 03/03/17 08:55 03/03/17 12:01 03/03/17 14:30 Glucose (Fingerstick) 309 mg/dL (70-99) White Blood Count 8.3 x10^3/uL (4.0-11.0) Red Blood Count 5.66 x10^6/uL (4.30-5.70) Hemoglobin 14.7 g/dL (13.0-17.5) Hematocrit 43.6 % (39.0-53.0) Mean Corpuscular Volume 77 fL (79-100) Mean Corpuscular Hemoglobin 26 pg (25-35) Mean Corpuscular Hemoglobin Concent 34 g/dL (31-37) Red Cell Distribution Width 13.8 % (11.5-14.5) Platelet Count 139 x10^3/uL (140-400) Neutrophils (%) (Auto) 59 % (31-73) Lymphocytes (%) (Auto) 32 % (24-48) Monocytes (%) (Auto) 5 % (0-9) Eosinophils (%) (Auto) 4 % (0-3) Basophils (%) (Auto) 1 % (0-3) Neutrophils # (Auto) 4.9 x10^3uL (1.8-7.7) Lymphocytes # (Auto) 2.7 x10^3/uL (1.0-4.8) Monocytes # (Auto) 0.4 x10^3/uL (0.0-1.1) Eosinophils # (Auto) 0.3 x10^3/uL (0.0-0.7) Basophils # (Auto) 0.1 x10^3/uL (0.0-0.2) D-Dimer (Hue) 0.45 mg/L (0.00-0.50) Sodium Level 139 mmol/L (136-145) Potassium Level 3.6 mmol/L (3.5-5.1) Chloride Level 103 mmol/L (98-107) Carbon Dioxide Level 27 mmol/L (21-32) Anion Gap 9 (6-14) Blood Urea Nitrogen 14 mg/dL (8-26) Creatinine 0.9 mg/dL (0.7-1.3) Estimated GFR (Cockcroft-Gault) 90.4 BUN/Creatinine Ratio 16 (6-20) Glucose Level 284 mg/dL (70-99) Calcium Level 9.2 mg/dL (8.5-10.1) Magnesium Level 1.8 mg/dL (1.8-2.4) 1.9 mg/dL (1.8-2.4) Total Bilirubin 0.4 mg/dL (0.2-1.0) Aspartate Amino Transf (AST/SGOT) 11 U/L (15-37) Alanine Aminotransferase (ALT/SGPT) 18 U/L (16-63) Alkaline Phosphatase 103 U/L (46-116) Creatine Kinase 53 U/L (39-308) Troponin I Quantitative < 0.017 ng/mL (0-0.055) 0.017 ng/mL (0-0.055) Total Protein 7.2 g/dL (6.4-8.2) Albumin 3.3 g/dL (3.4-5.0) Albumin/Globulin Ratio 0.8 (1.0-1.7) Nasal Screen MRSA (PCR) Negative (Negative) Test 03/03/17 20:35 03/03/17 21:00 03/04/17 05:39 Troponin I Quantitative < 0.017 ng/mL (0-0.055) Glucose (Fingerstick) 258 mg/dL (70-99) White Blood Count 8.7 x10^3/uL (4.0-11.0) Red Blood Count 5.49 x10^6/uL (4.30-5.70) Hemoglobin 14.3 g/dL (13.0-17.5) Hematocrit 42.7 % (39.0-53.0) Mean Corpuscular Volume 78 fL (79-100) Mean Corpuscular Hemoglobin 26 pg (25-35) Mean Corpuscular Hemoglobin Concent 33 g/dL (31-37) Red Cell Distribution Width 13.7 % (11.5-14.5) Platelet Count 131 x10^3/uL (140-400) Neutrophils (%) (Auto) 53 % (31-73) Lymphocytes (%) (Auto) 36 % (24-48) Monocytes (%) (Auto) 5 % (0-9) Eosinophils (%) (Auto) 4 % (0-3) Basophils (%) (Auto) 1 % (0-3) Neutrophils # (Auto) 4.7 x10^3uL (1.8-7.7) Lymphocytes # (Auto) 3.2 x10^3/uL (1.0-4.8) Monocytes # (Auto) 0.5 x10^3/uL (0.0-1.1) Eosinophils # (Auto) 0.4 x10^3/uL (0.0-0.7) Basophils # (Auto) 0.1 x10^3/uL (0.0-0.2) Sodium Level 140 mmol/L (136-145) Potassium Level 3.8 mmol/L (3.5-5.1) Chloride Level 104 mmol/L (98-107) Carbon Dioxide Level 30 mmol/L (21-32) Anion Gap 6 (6-14) Blood Urea Nitrogen 19 mg/dL (8-26) Creatinine 0.8 mg/dL (0.7-1.3) Estimated GFR (Cockcroft-Gault) 103.6 Glucose Level 217 mg/dL (70-99) Calcium Level 9.1 mg/dL (8.5-10.1) Magnesium Level 2.0 mg/dL (1.8-2.4) Coded Allergies: No Known Drug Allergies (Unverified , 11/17/13) Assessment/Plan Patient be admitted and did cardiac enzymes chest pain workup consult the short admission cardiology. ALLERGIES: Allergies Coded Allergies Type Severity Reaction Last Updated Verified No Known Drug Allergies 11/17/13 No MEDS: MEDICATIONS: Current Medications Medications (Trade) Dose Ordered Sig/Brenda Start Time Stop Time Status Last Admin Dose Admin Acetaminophen (Tylenol) 650 mg PRN Q6HRS PRN 03/03/17 13:00 03/04/17 12:23 DC Alprazolam (Xanax) 0.25 mg PRN Q8HRS PRN 03/03/17 13:15 03/04/17 12:23 DC 03/04/17 07:45 0.25 MG Amlodipine Besylate (Norvasc) 10 mg DAILY 03/04/17 09:00 03/04/17 12:23 DC 03/04/17 07:45 10 MG Aspirin (Aspirin Enteric Coated) 324 mg 1X ONCE 03/03/17 09:30 03/03/17 09:30 DC Aspirin (Children'S Aspirin) 81 mg DAILY 03/04/17 09:00 03/04/17 12:23 DC 03/04/17 07:45 81 MG Clonidine HCl (Catapres) 0.2 mg 1X ONCE 03/03/17 09:40 03/03/17 09:41 DC 03/03/17 09:29 0.2 MG Famotidine (Pepcid) 20 mg 1X ONCE 03/03/17 09:40 03/03/17 09:41 DC 03/03/17 09:28 20 MG Fenofibrate (Tricor) 145 mg DAILY 03/04/17 09:00 03/04/17 12:23 DC 03/04/17 07:45 145 MG Fluoxetine HCl (PROzac) 20 mg DAILY 03/04/17 09:00 03/04/17 12:23 DC 03/04/17 07:46 20 MG Ketorolac Tromethamine (Toradol) 30 mg PRN Q6HRS PRN 03/03/17 13:00 03/04/17 12:23 DC Lisinopril (Prinivil) 20 mg BID 03/04/17 21:00 03/04/17 21:00 DC Metformin HCl (Glucophage) 1,000 mg BIDWMEALS 03/04/17 08:00 03/04/17 12:23 DC 03/04/17 07:44 1,000 MG Metoprolol Tartrate (Lopressor) 100 mg BID 03/03/17 21:00 03/04/17 12:23 DC 03/04/17 07:45 100 MG Morphine Sulfate (Morphine 2mg Syringe) 2 mg PRN Q1HR PRN 03/03/17 13:00 03/04/17 12:23 DC Nicotine (Nicoderm Cq 21mg) 1 patch DAILY 03/03/17 13:45 03/04/17 12:23 DC 03/04/17 07:44 1 PATCH Nitroglycerin (Nitrostat) 0.4 mg 1X ONCE 03/03/17 09:30 03/03/17 09:31 DC Ondansetron HCl (Zofran) 4 mg PRN Q8HRS PRN 03/03/17 13:00 03/04/17 12:23 DC Pantoprazole Sodium (Protonix) 40 mg DAILYAC 03/04/17 07:30 03/04/17 12:23 DC 03/04/17 07:45 40 MG VITALS: Vital Signs Date Time Temp Pulse Resp B/P (MAP) Pulse Ox O2 Delivery O2 Flow Rate FiO2 03/04/17 08:00 Room Air 03/04/17 07:45 76 03/04/17 06:00 97.2 20 151/94 (113) 94 LABS: Laboratory Tests Test 03/03/17 12:01 03/03/17 14:30 03/03/17 20:35 03/03/17 21:00 Nasal Screen MRSA (PCR) Negative (Negative) Magnesium Level 1.9 mg/dL (1.8-2.4) Troponin I Quantitative 0.017 ng/mL (0-0.055) < 0.017 ng/mL (0-0.055) Glucose (Fingerstick) 258 mg/dL (70-99) Test 03/04/17 05:39 White Blood Count 8.7 x10^3/uL (4.0-11.0) Red Blood Count 5.49 x10^6/uL (4.30-5.70) Hemoglobin 14.3 g/dL (13.0-17.5) Hematocrit 42.7 % (39.0-53.0) Mean Corpuscular Volume 78 fL (79-100) Mean Corpuscular Hemoglobin 26 pg (25-35) Mean Corpuscular Hemoglobin Concent 33 g/dL (31-37) Red Cell Distribution Width 13.7 % (11.5-14.5) Platelet Count 131 x10^3/uL (140-400) Neutrophils (%) (Auto) 53 % (31-73) Lymphocytes (%) (Auto) 36 % (24-48) Monocytes (%) (Auto) 5 % (0-9) Eosinophils (%) (Auto) 4 % (0-3) Basophils (%) (Auto) 1 % (0-3) Neutrophils # (Auto) 4.7 x10^3uL (1.8-7.7) Lymphocytes # (Auto) 3.2 x10^3/uL (1.0-4.8) Monocytes # (Auto) 0.5 x10^3/uL (0.0-1.1) Eosinophils # (Auto) 0.4 x10^3/uL (0.0-0.7) Basophils # (Auto) 0.1 x10^3/uL (0.0-0.2) Sodium Level 140 mmol/L (136-145) Potassium Level 3.8 mmol/L (3.5-5.1) Chloride Level 104 mmol/L (98-107) Carbon Dioxide Level 30 mmol/L (21-32) Anion Gap 6 (6-14) Blood Urea Nitrogen 19 mg/dL (8-26) Creatinine 0.8 mg/dL (0.7-1.3) Estimated GFR (Cockcroft-Gault) 103.6 Glucose Level 217 mg/dL (70-99) Calcium Level 9.1 mg/dL (8.5-10.1) Magnesium Level 2.0 mg/dL (1.8-2.4) Triglycerides Level 378 mg/dL (0-150) Cholesterol Level 197 mg/dL (0-200) LDL Cholesterol, Calculated 95 mg/dL (0-100) VLDL Cholesterol, Calculated 75 mg/dL (0-40) Non-HDL Cholesterol Calculated 170 mg/dL (0-129) HDL Cholesterol 27 mg/dL (40-60) Cholesterol/HDL Ratio 7.0 ADRIÁN BLAIR MD Mar 05, 2017 09:32
== END 2017-03-04 11:20 | disposition home or self-care (01) | DRG 313 ==
LOC: ER 08:25 → ICU 11:03 → OBSVTOIN 11:03
PROVIDERS: ADMIT Family Medicine; ATTEND Family Medicine
DX: R07.89 Other chest pain (principal); E11.9 Type 2 diabetes mellitus without complications; E66.9 Obesity, unspecified; Z68.37 Body mass index [BMI] 37.0-37.9, adult; E78.00 Pure hypercholesterolemia, unspecified; E78.5 Hyperlipidemia, unspecified; F17.200 Nicotine dependence, unspecified, uncomplicated; I10 Essential (primary) hypertension; I25.10 Atherosclerotic heart disease of native coronary artery without angina pectoris; K21.9 Gastro-esophageal reflux disease without esophagitis; Z82.49 Family history of ischemic heart disease and other diseases of the circulatory system; I25.2 Old myocardial infarction; R55 Syncope and collapse
CPT/HCPCS: 36415; 71020; 80048; 80053; 80061; 82550; 82947; 83735; 84484; 85027; 85379; 87641; 93005; 96374; 99406; S0028; 99285-25

== ENCOUNTER → 2017-05-16 | Outpatient (CLI) | payer BC ==
[~2017-05-16] MED LIST changes: +IOHEXOL 240 MG/ML 50ML VIAL. ONE; +IOHEXOL 300 MG/ML 75 ML VIAL. IV ONE
--- NOTE | 2017-05-16 11:01 | RAD ---
CT of the abdomen and pelvis with contrast, 05/16/2017: History: Abdominal pain, nausea and vomiting with diarrhea Multidetector CT imaging was performed following oral and IV administration of contrast. Comparison is made to a study from 08/31/2015. No hepatic abnormality is detected. The gallbladder is somewhat contracted. No dense gallstones are seen. No pancreatic abnormality is detected. The spleen is of normal size. There is mild bilateral renal cortical scarring. There is a tiny nonobstructing calculus in the upper pole the right kidney. The kidneys show no evidence of obstruction or mass. No adrenal abnormality is detected. There is mild aortic calcific plaquing. No retroperitoneal, iliac or inguinal adenopathy is detected. The bowel loops are not dilated. The appendix is unremarkable. There is mural thickening involving a segment of proximal sigmoid colon on the left extending to the midline. A similar appearance was present on the previous study. Several small mildly prominent mesenteric lymph nodes are again identified. These nodes do not appear to have increased in size. The largest of these measures approximately 6 mm. There are mild streaky opacities in the paracolic fat compatible with inflammation. No definite diverticula are seen. There is a streaky opacity extending from the colon to the left superolateral margin of the urinary bladder with apparent tethering of the bladder in this region. There is mild diffuse bladder wall thickening. No free fluid or free air is evident in the abdomen or pelvis. IMPRESSION: 1. Moderate mural thickening involving the proximal to mid sigmoid colon suggesting chronic or recurrent colitis, versus a colonic neoplasm. Colonoscopic correlation is suggested. 2. Mild adjacent paracolic inflammation with a linear opacity tethering the left superolateral margin of the urinary bladder suggesting scarring. Tumor extension is less likely. 3. Mildly prominent paracolic mesenteric nodes, similar to those seen on 08/31/2015. 4. Mild diffuse bladder wall thickening suggesting cystitis versus chronic bladder outlet obstruction. PQRS Compliance Statement: One or more of the following individualized dose reduction techniques were utilized for this examination: 1. Automated exposure control 2. Adjustment of the mA and/or kV according to patient size 3. Use of iterative reconstruction technique
== END | disposition home or self-care (01) ==
LOC: CT 08:47
PROVIDERS: ATTEND Nurse Practitioner Adult Health
DX: N20.0 Calculus of kidney (principal); I70.0 Atherosclerosis of aorta; K82.0 Obstruction of gallbladder; A09 Infectious gastroenteritis and colitis, unspecified; E11.65 Type 2 diabetes mellitus with hyperglycemia; I10 Essential (primary) hypertension; Z79.01 Long term (current) use of anticoagulants; F17.200 Nicotine dependence, unspecified, uncomplicated
CPT/HCPCS: 74177; Q9966; Q9967

== ENCOUNTER 2018-05-09 11:42 | Emergency (ER) | payer BC ==
[~2018-05-09] VITALS: Ht 180.3 cm; Wt 122.5 kg
[~2018-05-09 11:42] MED LIST changes: -AMLO10TA2 PO; +AMLO10TA6 PO; -IOHEXOL 240 MG/ML 50ML VIAL. ONE; -IOHEXOL 300 MG/ML 75 ML VIAL. IV ONE; +METF500T16 PO; -METF500T4 PO; -METO100T2 PO; +METO100T7 PO; -METO50TA2 PO; +METO50TA6 PO
[2018-05-09 12:07] VITALS: BP 183/110
--- NOTE | 2018-05-09 12:23 | PHYS DOC ---
Past History Past Medical History: Diabetes, High Cholesterol, Hypertension Past Surgical History: Other Smoking: Cigarettes, Less than 1pk/day Alcohol Use: None Drug Use: None Adult General Chief Complaint Chief Complaint: EARACHE/EAR PAIN HPI HPI 47-year-old male presents with concern for foreign body in his left ear. Patient states he was using a Q-tip 2 months ago and believes the end came off and is still in his ear. He went to his PCP today who recommended he come to the emergency room for removal. Patient states that over the last week or so he has had increased pain in this year. He has also had worsening hearing on that side. He denies fever or chills. Review of Systems Review of Systems Constitutional: Denies fever or chills [] Eyes: Denies change in visual acuity, redness, or eye pain [] HENT: Foreign body in left ear[] Respiratory: Denies cough or shortness of breath [] Cardiovascular: No additional information not addressed in HPI [] GI: Denies abdominal pain, nausea, vomiting, bloody stools or diarrhea [] : Denies dysuria or hematuria [] Musculoskeletal: Denies back pain or joint pain [] Integument: Denies rash or skin lesions [] Neurologic: Denies headache, focal weakness or sensory changes [] Endocrine: Denies polyuria or polydipsia [] All other systems were reviewed and found to be within normal limits, except as documented in this note. Allergies Allergies Allergies Coded Allergies Type Severity Reaction Last Updated Verified No Known Drug Allergies 11/17/13 No Physical Exam Physical Exam Constitutional: Well developed, well nourished, no acute distress, non-toxic appearance. [] HENT: Normocephalic, atraumatic, oropharynx moist, no oral exudates, nose normal. Weight foreign body in the left ear canal obstructing tympanic membrane. Post removal, bilateral impacted cerumen obscuring both tympanic membranes.[] Eyes: PERRLA, EOMI, conjunctiva normal, no discharge. [] Neck: Normal range of motion, no tenderness, supple, no stridor. [] Cardiovascular:Heart rate regular rhythm, no murmur [] Lungs & Thorax: Bilateral breath sounds clear to auscultation [] Abdomen: Bowel sounds normal, soft, no tenderness, no masses, no pulsatile masses. [] Skin: Warm, dry, no erythema, no rash. [] Back: No tenderness, no CVA tenderness. [] Extremities: No tenderness, no cyanosis, no clubbing, ROM intact, no edema. [] Neurologic: Alert and oriented X 3, normal motor function, normal sensory function, no focal deficits noted. [] Psychologic: Affect normal, judgement normal, mood normal. [] EKG EKG [] Radiology/Procedures Radiology/Procedures [] Course & Med Decision Making Course & Med Decision Making Pertinent Labs and Imaging studies reviewed. (See chart for details) I was able to remove the foreign body from the left ear. I was unable to remove the cerumen due to discomfort. The serum appears to be right up against the tympanic membrane and is very dark in color which indicates it is very dry. I advised the patient follow with ENT for removal. [] Dragon Disclaimer Dragon Disclaimer This electronic medical record was generated, in whole or in part, using a voice recognition dictation system. Foreign Body Removal Procedure Indication: Patient had a foreign body in the left ear canal Procedure: The area of the foreign body did not require prep as it is technically external. Local anesthesia was not needed. The foreign body was removed, however the cerumen could not be removed due to discomfort:]. The patient tolerated the procedure well. Complications: The only complication was inability to remove all of cerumen. Departure Departure: Referrals: NAME,ROMEO SNEED (PCP) LEATHA GOMEZ DO May 09, 2018 12:23
== END 2018-05-09 12:30 | disposition home or self-care (01) ==
LOC: ER 11:42
DX: T16.2XXA Foreign body in left ear, initial encounter (principal); E11.9 Type 2 diabetes mellitus without complications; E78.00 Pure hypercholesterolemia, unspecified; I10 Essential (primary) hypertension; F17.210 Nicotine dependence, cigarettes, uncomplicated; X58.XXXA Exposure to other specified factors, initial encounter; Y93.89 Activity, other specified; Y92.89 Other specified places as the place of occurrence of the external cause; Y99.8 Other external cause status
CPT/HCPCS: 99284

== ENCOUNTER 2018-08-26 08:46 | Emergency (ER) | payer BC ==
[~2018-08-26] VITALS: Ht 180.3 cm; Wt 122.9 kg
[~2018-08-26 08:46] MED LIST changes: +METR-84 PO; -METR500T8 PO
--- NOTE | 2018-08-26 09:29 | RAD ---
Single view chest 03/03/2017 Clinical indication: Cough with chest pain COMPARISON: Chest 03/03/2017 FINDINGS: Cardiac and mediastinal silhouettes are unremarkable. No pleural effusion, pneumothorax or focal consolidation. IMPRESSION: No acute cardiopulmonary abnormality. Electronically signed by: Marck Long MD (08/26/2018 9:25 AM) [id number]
[2018-08-26] MEDS ORDERED: IV NORMAL SALINE 1,000ML 1,000 ML IV ONE (09:30)
[2018-08-26 09:31] LABS: BASO # 0.1 x10^3/uL (0.0-0.2); BASO % 1 % (0-3); EOS # 0.2 x10^3/uL (0.0-0.7); EOS % 3 % (0-3); HEMATOCRIT 45.2 % (39.0-53.0); HEMOGLOBIN 15.1 g/dL (13.0-17.5); LYMPH # 2.3 x10^3/uL (1.0-4.8); LYMPH % 28 % (24-48); MEAN CORPUSCULAR HEMOGLOBIN 26 pg (25-35); MEAN CORPUSCULAR HGB CONC 33 g/dL (31-37); MEAN CORPUSCULAR VOLUME 77 fL (79-100); MONO # 0.4 x10^3/uL (0.0-1.1); MONO % 5 % (0-9); NEUT % 63 % (31-73); PLATELET COUNT 210 x10^3/uL (140-400); RED BLOOD COUNT 5.88 x10^6/uL (4.30-5.70); RED CELL DISTRIBUTION WIDTH 13.3 % (11.5-14.5)
[2018-08-26 09:36] LABS: ALBUMIN/GLOBULIN RATIO 0.7 (1.0-1.7); CALCIUM 9.4 mg/dL (8.5-10.1); GFR 79.4; POTASSIUM 4.1 mmol/L (3.5-5.1); TOTAL BILIRUBIN 0.3 mg/dL (0.2-1.0); TOTAL PROTEIN 7.4 g/dL (6.4-8.2)
[2018-08-26] MEDS ORDERED: cloNIDine HCL 0.1 MG TABLET PO ONE (10:00)
[2018-08-26] MEDS ORDERED: GUAI12003 PO (10:26)
[2018-08-26] MEDS ORDERED: PROM118S5 PO (10:26)
[2018-08-26] MEDS ORDERED: CEPH-264 PO (10:26)
[2018-08-26] MEDS ORDERED: KETOROLAC 15 MG/ML VIAL. IV ONE (10:30)
[2018-08-26 10:31] VITALS: BP 161/95
--- NOTE | 2018-08-26 18:16 | EKG ---
[address] [address] Test Date: 2018-08-26 Test Time: 08:51:58 Pat Name: AUGUSTINA CERVANTES Department: Room: Gender: M [employer] Operator: RBENTON : 1970 Requested By: LEATHA CORTES Order Number: [id number] Reading MD: Rafael Gordon Measurements Intervals [place] Rate: 96 P: 42 [place]: 152 QRS: 115 QRSD: 100 T: -15 QT: 348 QTc: 441 Interpretive Statements SINUS RHYTHM ABNORMAL RIGHT AXIS DEVIATION QRS(T) CONTOUR ABNORMALITY CONSIDER ANTEROSEPTAL MYOCARDIAL DAMAGE Electronically Signed On 08-28-2018 17:23:51 [employer] by Rafael Gordon
--- NOTE | 2018-08-29 14:42 | ED.ADGEN ---
Past History Past Medical History: Anxiety, Diabetes Past Surgical History: No Surgical History Smoking: Cigarettes, Less than 1pk/day Alcohol Use: None Drug Use: None Adult General Chief Complaint Chief Complaint Chest wall pain, shortness of air HPI HPI Patient is a 48-year-old male presents chest wall pain, cough, shortness of breath. Symptom onset was 3 days ago. No fever chills, nausea vomiting or sweats. No leg pain swelling. No history of CAD, CHF, valvular heart disease, PE or DVT. No other acute symptoms or complaints.[] Review of Systems Review of Systems Review symptoms as per history of present illness. All other review symptoms are negative. All other systems were reviewed and found to be within normal limits, except as documented in this note. Current Medications Current Medications Current Medications Medications (Trade) Dose Ordered Sig/Brenda Start Time Stop Time Status Last Admin Dose Admin Clonidine HCl (Catapres) 0.2 mg 1X ONCE 08/26/18 10:00 08/26/18 10:01 DC 08/26/18 09:56 0.2 MG Ketorolac Tromethamine (Toradol 15mg Vial) 15 mg 1X ONCE 08/26/18 10:30 08/26/18 10:31 DC 08/26/18 10:25 15 MG Sodium Chloride 1,000 ml @ 1,000 mls/hr 1X ONCE 08/26/18 09:30 08/26/18 10:29 DC 08/26/18 09:59 1,000 MLS/HR Allergies Allergies Allergies Coded Allergies Type Severity Reaction Last Updated Verified No Known Drug Allergies 08/26/18 No Physical Exam Physical Exam Constitutional: Well developed, well nourished, no acute distress, non-toxic appearance. [] HENT: Normocephalic, atraumatic, bilateral external ears normal, oropharynx moist, no oral exudates, nose normal. [] Eyes: PERRLA, EOMI, conjunctiva normal, no discharge. [] Neck: Normal range of motion, no tenderness, supple, no stridor. [] Cardiovascular:Heart rate regular rhythm, no murmur, negative Homans signs. [] Lungs & Thorax: Bilateral breath sounds clear to auscultation [] Abdomen: Bowel sounds normal, soft, no tenderness, no masses, no pulsatile masses. [] Skin: Warm, dry, no erythema, no rash. [] Back: No tenderness. [] Extremities: No tenderness, no cyanosis, no clubbing, ROM intact, no edema. [] Neurologic: Alert and oriented X 3, normal motor function, normal sensory function, no focal deficits noted. [] Psychologic: Affect normal, judgement normal, mood normal. [] Current Patient Data Vital Signs Vital Signs Date Time Temp Pulse Resp B/P (MAP) Pulse Ox O2 Delivery O2 Flow Rate FiO2 08/26/18 10:31 81 16 161/95 (117) 97 Room Air 08/26/18 09:00 98.0 Lab Results Laboratory Tests Test 08/26/18 09:08 White Blood Count 8.0 x10^3/uL (4.0-11.0) Red Blood Count 5.88 x10^6/uL (4.30-5.70) H Hemoglobin 15.1 g/dL (13.0-17.5) Hematocrit 45.2 % (39.0-53.0) Mean Corpuscular Volume 77 fL (79-100) L Mean Corpuscular Hemoglobin 26 pg (25-35) Mean Corpuscular Hemoglobin Concent 33 g/dL (31-37) Red Cell Distribution Width 13.3 % (11.5-14.5) Platelet Count 210 x10^3/uL (140-400) Neutrophils (%) (Auto) 63 % (31-73) Lymphocytes (%) (Auto) 28 % (24-48) Monocytes (%) (Auto) 5 % (0-9) Eosinophils (%) (Auto) 3 % (0-3) Basophils (%) (Auto) 1 % (0-3) Neutrophils # (Auto) 5.0 x10^3uL (1.8-7.7) Lymphocytes # (Auto) 2.3 x10^3/uL (1.0-4.8) Monocytes # (Auto) 0.4 x10^3/uL (0.0-1.1) Eosinophils # (Auto) 0.2 x10^3/uL (0.0-0.7) Basophils # (Auto) 0.1 x10^3/uL (0.0-0.2) Sodium Level 135 mmol/L (136-145) L Potassium Level 4.1 mmol/L (3.5-5.1) Chloride Level 99 mmol/L (98-107) Carbon Dioxide Level 27 mmol/L (21-32) Anion Gap 9 (6-14) Blood Urea Nitrogen 14 mg/dL (8-26) Creatinine 1.0 mg/dL (0.7-1.3) Estimated GFR (Cockcroft-Gault) 79.4 BUN/Creatinine Ratio 14 (6-20) Glucose Level 370 mg/dL (70-99) H Calcium Level 9.4 mg/dL (8.5-10.1) Total Bilirubin 0.3 mg/dL (0.2-1.0) Aspartate Amino Transferase (AST) 14 U/L (15-37) L Alanine Aminotransferase (ALT) 21 U/L (16-63) Alkaline Phosphatase 100 U/L (46-116) Troponin I Quantitative < 0.017 ng/mL (0-0.055) Total Protein 7.4 g/dL (6.4-8.2) Albumin 3.0 g/dL (3.4-5.0) L Albumin/Globulin Ratio 0.7 (1.0-1.7) L Lipase 138 U/L (73-393) EKG EKG [EKG: Reviewed] Radiology/Procedures Radiology/Procedures [] Course & Med Decision Making Course & Med Decision Making Pertinent Labs and Imaging studies reviewed. (See chart for details) [Productive cough, shortness of breath. EKG, lab and imaging studies done diagnostic. Will treat for bronchitis with PCP follow-up. Return precautions reviewed.] Final Impression Final Impression [#1 chest pain nonspecific #2 bronchitis] Dragon Disclaimer Dragon Disclaimer This electronic medical record was generated, in whole or in part, using a voice recognition dictation system. LEATHA CORTES DO Aug 29, 2018 14:42
== END 2018-08-26 10:33 | disposition home or self-care (01) ==
LOC: ER 08:46
DX: J40 Bronchitis, not specified as acute or chronic (principal); R07.89 Other chest pain; F41.9 Anxiety disorder, unspecified; E11.9 Type 2 diabetes mellitus without complications; F17.210 Nicotine dependence, cigarettes, uncomplicated
CPT/HCPCS: 36415; 71045; 80053; 83690; 84484; 85025; 93005; 96374; 99284; J1885; J7030

== ENCOUNTER 2019-03-30 07:50 | Emergency (ER) | payer BC ==
[~2019-03-30] VITALS: Ht 180.3 cm; Wt 122.9 kg
[~2019-03-30 07:50] MED LIST changes: -AMLO10TA6 PO; +AMLO10TA8 PO; +CEPH-264 PO; +GUAI12003 PO; +METR-34 PO; -METR-84 PO; +PROM118S5 PO
[2019-03-30] MEDS ORDERED: IV NORMAL SALINE 1,000ML 1,000 ML IV SCH (08:16)
--- NOTE | 2019-03-30 08:25 | PHYS DOC ---
Past History Past Medical History: Anxiety, Diabetes Past Surgical History: No Surgical History Smoking: Cigarettes, Less than 1pk/day Alcohol Use: None Drug Use: None Adult General Chief Complaint Chief Complaint: abdominal pain HPI HPI Patient is a 48 year old male who presents with complaint of lower abdominal pain. The patient states that his symptoms started one week ago and have been waxing and waning since onset. Notes that he started having worsening nausea and vomiting today. States that the pain is currently 6 out of 10. Notes that the pain seems to worsen with them 10-15 minutes after eating. Has not had any fevers and denies any diarrhea or bloody stools. Describes the pain as sharp. Has not taking medications for symptoms. Has had similar symptoms in the past without any definitive diagnosis.[] Review of Systems Review of Systems Constitutional: Denies fever or chills [] Eyes: Denies change in visual acuity, redness, or eye pain [] HENT: Denies nasal congestion or sore throat [] Respiratory: Denies cough or shortness of breath [] Cardiovascular: Denies chest pain or edema[] GI: Abdominal pain, nausea, vomiting, denies bloody stools or diarrhea[] : Denies dysuria or hematuria [] Musculoskeletal: Denies back pain or joint pain [] Integument: Denies rash or skin lesions [] Neurologic: Denies headache, focal weakness or sensory changes [] All other systems were reviewed and found to be within normal limits, except as documented in this note. Current Medications Current Medications Current Medications Medications (Trade) Dose Ordered Sig/Brenda Start Time Stop Time Status Last Admin Dose Admin Famotidine (Pepcid Vial) 20 mg 1X ONCE 03/30/19 08:30 03/30/19 08:31 UNV Fentanyl Citrate (Fentanyl 2ml Vial) 50 mcg PRN Q15MIN PRN 03/30/19 08:30 03/31/19 08:29 UNV Ondansetron HCl (Zofran) 4 mg 1X ONCE 03/30/19 08:30 03/30/19 08:31 UNV Sodium Chloride 1,000 ml @ 1,000 mls/hr Q1H 03/30/19 08:16 03/30/19 09:15 UNV Allergies Allergies Allergies Coded Allergies Type Severity Reaction Last Updated Verified No Known Drug Allergies 08/26/18 No Physical Exam Physical Exam Constitutional: Alert, afebrile, appears in [id number] discomfort. [] HENT: Normocephalic, atraumatic, bilateral external ears normal, oropharynx moist, no oral exudates, nose normal. [] Eyes: PERRLA, EOMI, conjunctiva normal, no discharge. [] Neck: Normal range of motion, no tenderness, supple, no stridor. [] Cardiovascular:Heart rate regular rhythm, no murmur [] Lungs & Thorax: Bilateral breath sounds clear to auscultation [] Abdomen: Bowel sounds normal, soft, suprapubic and left lower quadrant tenderness to palpation with mild guarding, no rebound tenderness, no masses, no pulsatile masses. [] Skin: Warm, dry, no erythema, no rash. [] Back: No tenderness, no CVA tenderness. [] Extremities: No tenderness, no cyanosis, no clubbing, ROM intact, no edema. [] Neurologic: Alert and oriented X 3, normal motor function, normal sensory function, no focal deficits noted. [] Current Patient Data Vital Signs Vital Signs Date Time Temp Pulse Resp B/P (MAP) Pulse Ox O2 Delivery O2 Flow Rate FiO2 03/30/19 09:15 Room Air 03/30/19 08:50 98.4 67 20 97 Lab Results Laboratory Tests Test 03/30/19 08:15 White Blood Count 7.6 x10^3/uL Red Blood Count 5.32 x10^6/uL Hemoglobin 13.9 g/dL Hematocrit 41.8 % Mean Corpuscular Volume 79 fL Mean Corpuscular Hemoglobin 26 pg Mean Corpuscular Hemoglobin Concent 33 g/dL Red Cell Distribution Width 13.4 % Platelet Count 199 x10^3/uL Neutrophils (%) (Auto) 61 % Lymphocytes (%) (Auto) 28 % Monocytes (%) (Auto) 5 % Eosinophils (%) (Auto) 4 % Basophils (%) (Auto) 1 % Neutrophils # (Auto) 4.7 x10^3uL Lymphocytes # (Auto) 2.1 x10^3/uL Monocytes # (Auto) 0.4 x10^3/uL Eosinophils # (Auto) 0.3 x10^3/uL Basophils # (Auto) 0.1 x10^3/uL Sodium Level 142 mmol/L Potassium Level 4.1 mmol/L Chloride Level 105 mmol/L Carbon Dioxide Level 28 mmol/L Anion Gap 9 Blood Urea Nitrogen 12 mg/dL Creatinine 1.1 mg/dL Estimated GFR (Cockcroft-Gault) 71.1 BUN/Creatinine Ratio 11 Glucose Level 253 mg/dL Calcium Level 9.8 mg/dL Magnesium Level 1.9 mg/dL Total Bilirubin 0.4 mg/dL Aspartate Amino Transf (AST/SGOT) 15 U/L Alanine Aminotransferase (ALT/SGPT) 20 U/L Alkaline Phosphatase 76 U/L Total Protein 7.6 g/dL Albumin 3.4 g/dL Albumin/Globulin Ratio 0.8 Lipase 110 U/L Current Medications Medications (Trade) Dose Ordered Sig/Brenda Route PRN Reason Start Time Stop Time Status Last Admin Dose Admin Fentanyl Citrate (Fentanyl 2ml Vial) 50 mcg PRN Q15MIN PRN IV PAIN GREATER THAN 3/10 03/30/19 08:50 03/31/19 08:49 03/30/19 08:49 Sodium Chloride 1,000 ml @ 1,000 mls/hr Q1H IV 03/30/19 08:16 03/30/19 09:15 DC 03/30/19 08:50 Ondansetron HCl (Zofran) 4 mg 1X ONCE IV 03/30/19 08:50 03/30/19 08:51 DC 03/30/19 08:49 Famotidine (Pepcid Vial) 20 mg 1X ONCE IVP 03/30/19 08:50 03/30/19 08:51 DC 03/30/19 08:49 Iohexol (Omnipaque 240 Mg/ml) 50 ml 1X ONCE PO 03/30/19 09:10 03/30/19 09:11 DC Iohexol (Omnipaque 300 Mg/ml) 75 ml 1X ONCE IV 03/30/19 09:10 03/30/19 09:11 DC EKG EKG Not performed[] Radiology/Procedures Radiology/Procedures [address] [address] IMAGING REPORT Signed PATIENT: AUGUSTINA CERVANTES ACCOUNT: [id number] : 1970 LOCATION: ER AGE: 48 SEX: M EXAM STATUS: REG ER ORD. PHYSICIAN: MARION PEDROZA MD REASON: lower abdominal pain, OMNI 300, 75ml PROCEDURE: CT ABD PELV W/ IV CONTRST ONLY PQRS Compliance Statement: One or more of the following individualized dose reduction techniques were utilized for this examination: 1. Automated exposure control 2. Adjustment of the mA and/or kV according to patient size 3. Use of iterative reconstruction technique CT ABD PELV W/ IV CONTRST ONLY Clinical Indication: Lower abdominal pain. Comparison: CT abdomen and pelvis with contrast, May 16, 2017. Technique: Helical CT imaging of the abdomen and pelvis is performed after 75 cc of Omnipaque 300 IV contrast. Oral contrast not given. Findings: There is minimal atelectasis in the bilateral lower lobes posteriorly. Suspect coronary artery disease. Cardiac size normal. The spleen is mildly enlarged measuring 14.6 cm craniocaudal. Liver, gallbladder, pancreas, adrenal glands, and abdominal aorta are normal. Kidneys enhance symmetrically, no hydronephrosis. There are at least 3 punctate nonobstructing right renal calculi. Stomach unremarkable. No dilated small bowel. There is moderate wall thickening of the sigmoid colon involving an approximate 9.4 cm segment. There is mild surrounding adenopathy and mesenteric induration. Finding is similar to prior study, probably mildly worse. No other colon wall thickening is identified. The appendix is normal. Urinary bladder is normal. Prostate size normal. No pelvic free fluid. Degenerative endplate spurring of the lower thoracic spine. IMPRESSION: 1. Moderate wall thickening of the sigmoid colon with mild surrounding adenopathy and mesenteric induration. Finding is mildly worse from prior study. Recurrent segmental colitis is a consideration but colon malignancy is not excluded. Recommend correlation with colonoscopy. 2. Mild splenomegaly. 3. Punctate nonobstructing right renal calculi. Electronically signed by: Geremias Nunez MD (03/30/2019 10:11 AM) [id number] DICTATED AND SIGNED BY: GEREMIAS NUNEZ MD DATE: 03/30/19 1011 CC: MARION PEDROZA MD; NAME,ROMEO SNEED ~ [] Course & Med Decision Making Course & Med Decision Making Pertinent Labs and Imaging studies reviewed. (See chart for details) Patient was given IV fluids, fentanyl, and Zofran. Patient states his pain is well-controlled at this time. CT imaging shows evidence of acute light S versus diverticulitis. Of note the patient had a similar episode in 2016. At that time the patient was recommended to see a audit manager for colonoscopy to rule out possible colonic malignancy. He states that he originally had a colono scopy scheduled, however this was canceled and patient has not had any further evaluation for this. I strongly advised the patient to follow up with gastroenterology within the next 4-6 weeks to undergo colonoscopy to rule out possible colonic malignancy. At this time however the patient is stable for discharge. Started on oral Cipro and Flagyl for treatment. Will continue 10 d ay course as outpatient with recommended follow-up with primary doctor in the next 5-7 days. Advised return to emergency department for any worsening symptoms. Patient was understanding and in agreement with treatment plan.[] Dragon Disclaimer Dragon Disclaimer This electronic medical record was generated, in whole or in part, using a voice recognition dictation system. Departure Departure: Impression: Primary Impression: Diverticulitis Disposition: HOME, SELF-CARE Condition: IMPROVED Referrals: NAME,ROMEO SNEED (PCP) KHANH PATTEN MD Patient Instructions: Diverticulitis Additional Instructions: It is strongly recommended that she'll follow-up with a audit manager in the next 4-6 weeks for further evaluation and likely need for colonoscopy. He will need to have this done to rule out any possible malignancy or mass that could be causing you to have recurrent diverticulitis. Follow-up with your primary doctor in 5-7 days for reevaluation. Return to the emergency department for any worsening symptoms. Scripts Hydrocodone Bit/Acetaminophen (NORCO 5-325 TABLET) 1 Each Tablet 1 TAB PO Q6HRS PRN for PAIN, #20 TAB Prov: MARION PEDROZA MD 03/30/19 Ciprofloxacin Hcl (CIPRO) 500 Mg Tablet 1 TAB PO BID, #20 TAB Prov: MARION PEDROZA MD 03/30/19 Metronidazole (FLAGYL) 500 Mg Tablet 1 TAB PO TID, #30 TAB Prov: MARION PEDROZA MD 03/30/19 MARION PEDROZA MD Mar 30, 2019 08:25
[2019-03-30 08:31] LABS: BASO # 0.1 x10^3/uL (0.0-0.2); BASO % 1 % (0-3); EOS # 0.3 x10^3/uL (0.0-0.7); EOS % 4 % (0-3); HEMATOCRIT 41.8 % (39.0-53.0); HEMOGLOBIN 13.9 g/dL (13.0-17.5); LYMPH # 2.1 x10^3/uL (1.0-4.8); LYMPH % 28 % (24-48); MEAN CORPUSCULAR HEMOGLOBIN 26 pg (25-35); MEAN CORPUSCULAR HGB CONC 33 g/dL (31-37); MEAN CORPUSCULAR VOLUME 79 fL (79-100); MONO # 0.4 x10^3/uL (0.0-1.1); MONO % 5 % (0-9); NEUT # 4.7 x10^3uL (1.8-7.7); NEUT % 61 % (31-73); PLATELET COUNT 199 x10^3/uL (140-400); RED BLOOD COUNT 5.32 x10^6/uL (4.30-5.70); RED CELL DISTRIBUTION WIDTH 13.4 % (11.5-14.5); WHITE BLOOD COUNT 7.6 x10^3/uL (4.0-11.0)
[2019-03-30 08:46] LABS: ALBUMIN 3.4 g/dL (3.4-5.0); ALBUMIN/GLOBULIN RATIO 0.8 (1.0-1.7); CALCIUM 9.8 mg/dL (8.5-10.1); CREATININE 1.1 mg/dL (0.7-1.3); GFR 71.1; MAGNESIUM 1.9 mg/dL (1.8-2.4); POTASSIUM 4.1 mmol/L (3.5-5.1); TOTAL BILIRUBIN 0.4 mg/dL (0.2-1.0); TOTAL PROTEIN 7.6 g/dL (6.4-8.2)
[2019-03-30] MEDS ORDERED: FAMOTIDINE 20 MG/2 ML VIAL IVP ONE (08:50)
[2019-03-30] MEDS ORDERED: ONDANSETRON PF 4 MG/2 ML VIAL. IV ONE (08:50)
[2019-03-30] MEDS ORDERED: IOHEXOL 300 MG/ML 75 ML VIAL. IV ONE (09:10)
[2019-03-30] MEDS ORDERED: IOHEXOL 240 MG/ML 50ML VIAL. PO ONE (09:10)
--- NOTE | 2019-03-30 10:14 | RAD ---
PQRS Compliance Statement: One or more of the following individualized dose reduction techniques were utilized for this examination: 1. Automated exposure control 2. Adjustment of the mA and/or kV according to patient size 3. Use of iterative reconstruction technique CT ABD PELV W/ IV CONTRST ONLY Clinical Indication: Lower abdominal pain. Comparison: CT abdomen and pelvis with contrast, May 16, 2017. Technique: Helical CT imaging of the abdomen and pelvis is performed after 75 cc of Omnipaque 300 IV contrast. Oral contrast not given. Findings: There is minimal atelectasis in the bilateral lower lobes posteriorly. Suspect coronary artery disease. Cardiac size normal. The spleen is mildly enlarged measuring 14.6 cm craniocaudal. Liver, gallbladder, pancreas, adrenal glands, and abdominal aorta are normal. Kidneys enhance symmetrically, no hydronephrosis. There are at least 3 punctate nonobstructing right renal calculi. Stomach unremarkable. No dilated small bowel. There is moderate wall thickening of the sigmoid colon involving an approximate 9.4 cm segment. There is mild surrounding adenopathy and mesenteric induration. Finding is similar to prior study, probably mildly worse. No other colon wall thickening is identified. The appendix is normal. Urinary bladder is normal. Prostate size normal. No pelvic free fluid. Degenerative endplate spurring of the lower thoracic spine. IMPRESSION: 1. Moderate wall thickening of the sigmoid colon with mild surrounding adenopathy and mesenteric induration. Finding is mildly worse from prior study. Recurrent segmental colitis is a consideration but colon malignancy is not excluded. Recommend correlation with colonoscopy. 2. Mild splenomegaly. 3. Punctate nonobstructing right renal calculi. Electronically signed by: Geremias Nunez MD (03/30/2019 10:11 AM) [id number]
[2019-03-30] MEDS ORDERED: HYDR-3165 PO (10:30)
[2019-03-30] MEDS ORDERED: METR500T PO (10:30)
[2019-03-30] MEDS ORDERED: CIPR500T94 PO (10:30)
[2019-03-30 10:55] VITALS: BP 154/91
[2019-03-30] MEDS ORDERED: metroNIDAZOLE 500 MG TABLET PO ONE (10:55)
[2019-03-30] MEDS ORDERED: CIPROFLOXACIN HCL 500 MG TABLET PO ONE (10:55)
== END 2019-03-30 10:55 | disposition home or self-care (01) ==
LOC: ER 07:50
DX: K57.32 Diverticulitis of large intestine without perforation or abscess without bleeding (principal); R16.1 Splenomegaly, not elsewhere classified; N20.0 Calculus of kidney; E11.9 Type 2 diabetes mellitus without complications; F17.210 Nicotine dependence, cigarettes, uncomplicated; R11.2 Nausea with vomiting, unspecified
CPT/HCPCS: 36415; 74177; 80053; 83690; 83735; 85025; 96361; 96374; 96375; 99285; J2405; J3010; J3490; Q9966; Q9967; J7030

== ENCOUNTER 2019-06-04 13:57 | Observation (INO) | payer BC ==
[~2019-06-04] VITALS: Ht 180.3 cm; Wt 124.0 kg
[~2019-06-04 13:57] MED LIST changes: +CIPR500T94 PO; +HYDR-3165 PO; +METR500T PO
[2019-06-04] MEDS ORDERED: METF500T16 PO (14:23)
[2019-06-04] MEDS ORDERED: LISI-334 PO (14:23)
[2019-06-04] MEDS ORDERED: AMLO10TA8 PO (14:23)
[2019-06-04] MEDS ORDERED: FENO160T PO (14:23)
[2019-06-04] MEDS ORDERED: METO100T7 PO (14:23)
[2019-06-04 14:27] VITALS: BP 182/113
[2019-06-04] MEDS: IV NORMAL SALINE 1,000ML 1,000 ML IV SCH (15:31)
[2019-06-04] MEDS ORDERED: ACETAMINOPHEN 325 MG TABLET PO PRN (15:45)
--- NOTE | 2019-06-04 16:08 | HP ---
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 The patient was brought to the Emergency Room of the [facility] and apparently has been having recurrent bouts of nausea, vomiting and diarrhea as well as runny nose and cough and chest congestion for the last 2-3 days. He has also had multiple loose bowel movements. He denied any chest pain, shortness of breath, continued to have some nausea. Denied any blood in the stool, focal weakness, fever or change in mental status, has no seizures or focal weakness. He is known to have coronary artery disease and apparently was seemed to have left heart catheterization and angioplasty. He was extensively evaluated in the Emergency Room and had lab work and was transferred to our facility as he non-MD with diagnosis of probably acute gastroenteritis. PAST MEDICAL HISTORY: Significant for type 2 diabetes, hypertension. He is also known to have hyperlipidemia and chronic coronary artery disease, status post left heart catheterization and angioplasty. PAST SURGICAL HISTORY: Significant for left heart catheterization. FAMILY HISTORY: Noncontributory. SOCIAL HISTORY: He is , has 1 son. He smokes 4 cigarettes a day, does not drink alcohol, any recreational drugs. PHYSICAL EXAMINATION: GENERAL: On examining him, he was resting slightly propped up in bed, in no apparent respiratory distress. No pallor, jaundice, cyanosis or thyromegaly. No jugular venous distension. No limb edema. VITAL SIGNS: His heart rate was 93, blood pressure was 182/113, temperature was 97.6, respiratory rate was 18 and oxygen saturation was 94%. HEAD, EYES, EARS, NOSE AND THROAT: Showed normocephalic, atraumatic. NECK: Supple. HEART: Showed normal first and second heart sounds. No gallop or murmur. CHEST: Clear to auscultation. No crepitation or rhonchi. ABDOMEN: Distended, soft, nontender. No guarding or rigidity. No organomegaly. All hernial orifice intact. Bowel sounds normal. NEUROLOGIC: He is awake, alert, responding appropriately. All his cranial nerves are intact. EXTREMITIES: He moves extremities without difficulty. He ambulates without assistance or assistive devices. LABORATORY DATA: Showed his white cell count was 10,700, hemoglobin 14, hematocrit 43, MCV 78 and platelet count of 194,000 with normal manual differential. His chemistry showed a serum sodium 140, potassium 3.8, chloride 103, bicarbonate 25, anion gap of 12, creatinine 1, estimated GFR was 76 mL per minute. His calcium was 10.2. Amylase was 53. Alkaline phosphatase, AST and ALT are normal. Total bilirubin 0.7. Total protein was 7.3, albumin was 4.3. His D-dimer was 348 mg/dL. Urinalysis was essentially unremarkable. His influenza A and B were negative. ASSESSMENT AND PLAN: The patient was admitted with acute gastroenteritis. We will continue with all his medication. Continue with IV fluid. We will monitor his blood sugar and add insulin sliding scale if need be. MALINI LECHUGA MD DR: SIERRA/tammy JOB#: [id number] / [id number]
[2019-06-04] MEDS: amLODIPine BESYLATE 10 MG TABLET PO SCH (16:10)
[2019-06-04] MEDS: METOPROLOL TART IMMED RELEASE 50 MG TABLET PO SCH ×2 (16:10→22:08)
[2019-06-04] MEDS: LISINOPRIL 20 MG TABLET PO SCH (16:10)
[2019-06-04] MEDS: metFORMIN 500 MG TABLET PO SCH (16:34)
[2019-06-04 19:52] VITALS: BP 151/78
[2019-06-04 22:27] VITALS: BP 135/71
[2019-06-05 05:23] VITALS: BP 157/85
[2019-06-05] MEDS: IV NORMAL SALINE 1,000ML 1,000 ML IV SCH (06:00)
[2019-06-05 06:43] LABS: HEMATOCRIT 40.1 % (39.0-53.0); HEMOGLOBIN 13.4 g/dL (13.0-17.5); RED BLOOD COUNT 5.08 x10^6/uL (4.30-5.70); RED CELL DISTRIBUTION WIDTH 13.5 % (11.5-14.5); WHITE BLOOD COUNT 8.5 x10^3/uL (4.0-11.0)
[2019-06-05 06:52] LABS: ALBUMIN 2.9 g/dL (3.4-5.0); ALBUMIN/GLOBULIN RATIO 0.7 (1.0-1.7); CREATININE 0.9 mg/dL (0.7-1.3); GFR 89.7; POTASSIUM 3.5 mmol/L (3.5-5.1); TOTAL BILIRUBIN 0.7 mg/dL (0.2-1.0); TOTAL PROTEIN 6.8 g/dL (6.4-8.2)
[2019-06-05] MEDS: LISINOPRIL 20 MG TABLET PO SCH (08:19)
[2019-06-05 08:20] VITALS: BP 157/85
[2019-06-05] MEDS: METOPROLOL TART IMMED RELEASE 50 MG TABLET PO SCH (08:20)
[2019-06-05] MEDS: amLODIPine BESYLATE 10 MG TABLET PO SCH (08:20)
[2019-06-05] MEDS: metFORMIN 500 MG TABLET PO SCH (08:20)
[2019-06-05] MEDS ORDERED: FENOFIBRATE NANOCRYSTALLIZED 145 MG TABLET PO SCH (09:00)
[2019-06-05] MEDS ORDERED: ASPIRIN 81 MG TAB.CHEW PO SCH (09:00)
--- NOTE | 2019-06-05 19:58 | DS ---
DATE OF DISCHARGE: 06/05/2019 HOSPITAL COURSE: The patient is sitting slightly propped up in bed, in no apparent distress, awake, alert. On questioning him, he denied any complaint, in particular had no further episodes of nausea, vomiting, no diarrhea, no abdominal pain, tolerating his food and the plan was to discharge him home to continue on all his current medication. PHYSICAL EXAMINATION: GENERAL: When I examined him this morning, he looked well and was clearly in no apparent respiratory distress. No pallor, jaundice, cyanosis or thyromegaly. No jugular venous distension. No lower limb edema. VITAL SIGNS: His heart rate was 74, blood pressure was 157/85, temperature was 97.8, respiratory rate was 24, and oxygen saturation was 91%. HEAD, EYES, EARS, NOSE AND THROAT: Showed normocephalic, atraumatic. NECK: Supple. HEART: Showed normal first and second heart sounds. No gallop, rub or murmur. CHEST: Clear to auscultation. No crepitation or rhonchi. ABDOMEN: Distended, soft, nontender. NEUROLOGIC: He was awake, alert, responding appropriately. All cranial nerves are intact. He moves extremities without difficulty. He ambulates without assistance or assistive devices. His intake was 1300, no output was recorded. As of this morning, his serum sodium 139, potassium 3.5, chloride 103, bicarbonate 26, anion gap of 10, BUN 9, creatinine 0.9, estimated GFR was 89 mL per minute, his glucose 160, calcium was 9. Total bilirubin, AST, ALT, alkaline phosphatase were normal. Total protein was 6.8, albumin 2.9. White cell count was 8500, hemoglobin 13, hematocrit 40, MCV 79 and platelet count 175,000. DISCHARGE MEDICATIONS: He was discharged home to continue on amlodipine besylate 10 mg once a day, aspirin 81 mg once a day, fenofibrate 160 mg daily, lisinopril 20 mg daily, metformin 500 mg twice a day and metoprolol tartrate 100 mg twice a day. FINAL DISCHARGE DIAGNOSES: Acute gastroenteritis resolved, hypertension, hyperlipidemia and type 2 diabetes, coronary artery disease, status post percutaneous coronary intervention with stent deployment. MALINI LECHUGA MD DR: SIERRA/tammy JOB#: [id number] / [id number]
== END 2019-06-05 10:53 | disposition home or self-care (01) ==
LOC: 1 SOUTH 13:57 → INTOOBSV 13:57
PROVIDERS: ADMIT Internal Medicine; ATTEND Internal Medicine
DX: K52.9 Noninfective gastroenteritis and colitis, unspecified (principal); R42 Dizziness and giddiness; I25.10 Atherosclerotic heart disease of native coronary artery without angina pectoris; E11.9 Type 2 diabetes mellitus without complications; I10 Essential (primary) hypertension; E78.5 Hyperlipidemia, unspecified; F17.210 Nicotine dependence, cigarettes, uncomplicated; Z98.61 Coronary angioplasty status; Z79.84 Long term (current) use of oral hypoglycemic drugs; Z79.899 Other long term (current) drug therapy
CPT/HCPCS: 36415; 80053; 82947; 85027; 96360; 96361; G0378; G0379; J7030

== ENCOUNTER 2019-09-15 21:24 | Inpatient (IN) | payer BC ==
[~2019-09-15] VITALS: Ht 180.3 cm; Wt 116.8 kg
[~2019-09-15 21:24] MED LIST changes: +FENO160T PO; +FLUO20CA19 PO; -FLUO20CA8 PO
--- NOTE | 2019-09-15 21:29 | PHYS DOC ---
Past History Past Medical History: Anxiety, Bronchitis, CAD, Constipation, Diabetes, GERD, IBS Past Medical History Hx. of Colitis Past Surgical History: No Surgical History Smoking: Cigarettes, Less than 1pk/day Alcohol Use: None Drug Use: None Adult General Chief Complaint Chief Complaint: " I am not suire what going on.... I ve had these gut problems for past year.. the last couple days .. I been off.. nausea. .. pain here on Lt. and middle left... " HPI HPI Patient is a 49 year old male who presents with above hx and complaints nausea, vomiting, abdomen pain. Patient localizes pain on left flank and left abdomen. Patient has had history of irritable bowel/colitis episodes for the past year. Pt. does reports some constipation recently. Has never had a colonoscopy. Patient denies any intake bad food, travel or specific ill contacts. No history immunosuppression. Patient does have a history of diabetes, hyperlipidemia, coronary artery disease- with stents, and hypertension and GERD. Pt.does smoke. Patient has had episodes of acute gastroenteritis. Last admission to our facility was 06/04/19 for acute gastroenteritis. Patient denies history of prior kidney stones. There is family history her parents who have had kidney stones. Patient denies any trauma. Patient did not get a flu vaccination this season. Patient normally follows with Dr. Blair. Patient also [facility] with [facility] Patient has not had any recent overseas travel. Review of Systems Review of Systems Constitutional: Denies fever or chills [] Eyes: Denies change in visual acuity, redness, or eye pain [] HENT: Denies nasal congestion or sore throat [] Respiratory: Denies cough or shortness of breath [] Cardiovascular: No additional information not addressed in HPI [] GI: Complaints of left flank and abdominal pain, nausea, vomiting,. Patient denies bloody stools or diarrhea [] : Denies dysuria or hematuria [] Musculoskeletal: Denies back pain or joint pain [] Integument: Denies rash or skin lesions [] Neurologic: Denies headache, focal weakness or sensory changes [] Endocrine: Denies polyuria or polydipsia [] All other systems were reviewed and found to be within normal limits, except as documented in this note. Family History Family History Renal stones with parents Current Medications Current Medications See nursing for home medications Allergies Allergies Allergies Coded Allergies Type Severity Reaction Last Updated Verified No Known Drug Allergies 08/26/18 No Physical Exam Physical Exam Constitutional: in acute distress, non-toxic appearance. [] HENT: Normocephalic, atraumatic, bilateral external ears normal, oropharynx moist, no oral exudates, nose normal. [] Eyes: PERRLA, EOMI, conjunctiva normal, no discharge. Glasses Neck: Normal range of motion, no tenderness, supple, no stridor. [] Cardiovascular:Heart rate regular rhythm, no murmur []PMI to the left Lungs & Thorax: Bilateral breath sounds equal at apex with scattered wheezes on auscultation [] Abdomen: Bowel sounds decreased, soft, left flank, left upper and mid abdomen tenderness, distended, no masses, no pulsatile masses. Obese. Rebound to Lt. upper and mid. abdomen. Skin: Warm, diaphoretic, no erythema, no rash. [] Back: No tenderness, mild Lt CVA tenderness. [] Extremities: No tenderness, no cyanosis, no clubbing, ROM intact, no edema. [] No true psoas sign Neurologic: Alert and oriented X 3, 6. She is on request, does have distal sensory, no gross focal deficits noted. [] Psychologic: Affect anxious, judgement normal, mood normal. [] EKG EKG I interpretation EKG shows a sinus rhythm at 79 bpm. Does have bimodal P-wave's. Any complete bundle branch block. There is some contour abnormalities in in the ST waves however there is no contralateral signs of acute STEMI. There is some wavering baseline to the EKG because of patient's movement and inability to lay still because of his Lt. flank Lt sided abdomen pain.[] Radiology/Procedures Radiology/Procedures [][address] [address] IMAGING REPORT Signed PATIENT: AUGUSTINA CERVANTES ACCOUNT: [id number] : 1970 LOCATION: ER AGE: 49 SEX: M EXAM STATUS: PRE ER ORD. PHYSICIAN: BERT COSTA MD REASON: Abdomen pain, nausea, vomiting PROCEDURE: ACUTE ABDOMEN SERIES Acute Abdominal Series: Technique: PA view of the chest and supine and upright views of the abdomen were obtained. History: Abdominal pain nausea and vomiting. Comparison: None. Findings: The lungs and pleural margins are clear. There is air and stool scattered throughout the colon. The paucity of small bowel gas. There is no free air. Impression: Constipation. Electronically signed by: Melanie Kelsey III, MD (09/15/2019 10:04 PM) [facility] DICTATED AND SIGNED BY: MELANIE KELSEY III, MD DATE: 09/15/192203 CC: BERT COSTA MD; NAME,ROMEO SNEED ~ Course & Med Decision Making Course & Med Decision Making Pertinent Labs and Imaging studies reviewed. (See chart for details) Pt. admitted to Dr. Blair. NPO status except meds. Will need colon scopic eval . at some point when over this acute episode of diverticulitis. Impression: 1. Abdomen Pain 2. Nausea and Vomiting 3. Constipation 4. Tobacco Use 5. Hx. CAD- s/p cath and stents 6. Mild Hypokalemia 3.3 7. DM - gluc 236 8. Mild Leukocytosis 11.5 9. Malnutrition - Alb. 3.0 10. Hematuria ( 6-10) 11. Acute Diverticulitis [] Dragon Disclaimer Dragon Disclaimer This electronic medical record was generated, in whole or in part, using a voice recognition dictation system. Departure Departure: Disposition: 01 HOME/RESIDENCE PRIOR TO ADM Condition: STABLE Referrals: ROMEO LY (PCP) [place] Disclaimer This chart was dictated in whole or in part using Voice Recognition software in a busy, high-work load, and often noisy Emergency Department environment. It may contain unintended and wholly unrecognized errors or omissions. BERT COSTA MD Sep 15, 2019 21:29
[2019-09-15] MEDS ORDERED: IV RINGERS SOLUTION,LACTATED 1,000 ML IV SCH (21:32)
[2019-09-15] MEDS ORDERED: FAMOTIDINE 20 MG/2 ML VIAL IVP ONE (22:00)
[2019-09-15] MEDS ORDERED: ONDANSETRON PF 4 MG/2 ML VIAL. IVP ONE (22:00)
--- NOTE | 2019-09-15 22:07 | RAD ---
Acute Abdominal Series: Technique: PA view of the chest and supine and upright views of the abdomen were obtained. History: Abdominal pain nausea and vomiting. Comparison: None. Findings: The lungs and pleural margins are clear. There is air and stool scattered throughout the colon. The paucity of small bowel gas. There is no free air. Impression: Constipation. Electronically signed by: Robert Wallace III, MD (09/15/2019 10:04 PM) [facility]
[2019-09-15 22:12] LABS: BASO # 0.1 x10^3/uL (0.0-0.2); BASO % 1 % (0-3); EOS # 0.4 x10^3/uL (0.0-0.7); EOS % 3 % (0-3); HEMATOCRIT 45.8 % (39.0-53.0); LYMPH # 3.3 x10^3/uL (1.0-4.8); LYMPH % 28 % (24-48); MEAN CORPUSCULAR HEMOGLOBIN 25 pg (25-35); MEAN CORPUSCULAR HGB CONC 33 g/dL (31-37); MEAN CORPUSCULAR VOLUME 77 fL (79-100); MONO # 0.5 x10^3/uL (0.0-1.1); MONO % 5 % (0-9); NEUT # 7.3 x10^3uL (1.8-7.7); NEUT % 63 % (31-73); PLATELET COUNT 249 x10^3/uL (140-400); RED BLOOD COUNT 5.94 x10^6/uL (4.30-5.70); RED CELL DISTRIBUTION WIDTH 13.9 % (11.5-14.5); WHITE BLOOD COUNT 11.5 x10^3/uL (4.0-11.0)
[2019-09-15 22:13] LABS: BACTERIA,URINE 0 /HPF (0-FEW); BILIRUBIN,URINE NEG (NEG); CLARITY,URINE CLEAR; COLOR,URINE AMBER; GLUCOSE,URINE 100 mg/dL (NEG); GRANULAR CASTS,URINE OCC /HPF; HYALINE CASTS, URINE OCC /HPF; NITRITE,URINE NEG (NEG); SQUAMOUS EPITHELIAL CELL,UR OCC /LPF; UROBILINOGEN,URINE 0.2 mg/dL (0.2 mg/dL); WBC,URINE OCC /HPF (0-4)
[2019-09-15 22:16] LABS: CALCIUM 9.7 mg/dL (8.5-10.1); CREATININE 0.8 mg/dL (0.7-1.3); GFR 102.3; POTASSIUM 3.3 mmol/L (3.5-5.1)
[2019-09-15 22:19] LABS: BARBITURATES NEG (NEG); BENZODIAZEPINES NEG (NEG); CANNABINOIDS NEG (NEG); COCAINE NEG (NEG); METHADONE NEG (NEG); OPIATES NEG (NEG); PHENCYCLIDINE NEG (NEG)
[2019-09-15 22:23] LABS: DIRECT BILIRUBIN 0.1 mg/dL (0.0-0.2); TOTAL BILIRUBIN 0.2 mg/dL (0.2-1.0)
[2019-09-15 22:25] LABS: AMPHETAMINE/METHAMPHETAMINE NEG (NEG)
--- NOTE | 2019-09-15 23:06 | RAD ---
Exam: CT abdomen and pelvis without contrast INDICATION: Left flank pain TECHNIQUE: Sequential axial images through the abdomen and pelvis obtained without IV contrast. Sagittal and coronal reformatted images were reconstructed from the axial data and reviewed. Comparisons: 03/30/2019 FINDINGS: Heart size is normal. No pericardial effusion. Visualized lung bases are clear. No pleural effusion Evaluation of solid organs is limited secondary to noncontrast technique. Liver, spleen, pancreas, gallbladder and adrenals are unremarkable. No perinephric inflammation or hydronephrosis. Several nonobstructing renal calculi are identified. No ureteral calculi identified. Bladder is decompressed not well evaluated. Prostate is not enlarged. There is inflammatory changes at the sigmoid colon with wall thickening and adjacent prominent lymphadenopathy. No adjacent free fluid or fluid collection. Remainder of the large and small bowel are unremarkable. No obstruction. No free intra-abdominal air or fluid. Appendix is normal. Abdominal aorta has normal course and caliber. No enlarged intra-abdominal lymph nodes are identified. No suspicious osseous lesions or acute fractures. IMPRESSION: 1. Findings of acute diverticulitis at the sigmoid colon. No evidence for perforation or adjacent abscess. Colonoscopy posttreatment to ensure no underlying neoplasm is recommended. 2. Several nonobstructing renal calculi bilaterally. Exposure: One or more of the following in the visualized dose reduction techniques were utilized for this examination: 1. Automated exposure control 2. Adjustment of the MA and/or KV according to patient size 3. Use of iterative of reconstructive technique Electronically signed by: Connor Barnes MD (09/15/2019 11:04 PM) [facility]
[2019-09-15] MEDS ORDERED: MAGNESIUM HYDROXIDE 2,400 MG/30 ML ORAL.SUSP. PO ONE (23:15)
[2019-09-15] MEDS ORDERED: ACETAMINOPHEN 325 MG TABLET PO PRN (23:30)
[2019-09-15] MEDS ORDERED: MORPHINE SULFATE 10 MG/ML SYRINGE. SQ PRN (23:30)
[2019-09-15] MEDS ORDERED: ONDANSETRON PF 4 MG/2 ML VIAL. IV PRN (23:30)
[2019-09-16] VITALS (7 sets, daily range): BP systolic 147–185; BP diastolic 81–118
[2019-09-16] MEDS ORDERED: cloNIDine HCL 0.1 MG TABLET PO ONE
[2019-09-16] MEDS ORDERED: IV NORMAL SALINE 1,000ML 1,000 ML IV ONE
--- NOTE | 2019-09-16 00:03 | EKG ---
[address] [address] Test Date: 2019-09-15 Test Time: 21:43:01 Pat Name: AUGUSTINA CERVANTES Department: Room: Gender: M [place]: : 1970 Requested By: BERT COSTA Order Number: [id number] Reading MD: Measurements Intervals [place] Rate: 79 P: 100 WI: 156 QRS: 89 QRSD: 104 T: -8 QT: 380 QTc: 437 Interpretive Statements SINUS RHYTHM LEFT ATRIAL ABNORMALITY R-S TRANSITION ZONE IN V LEADS DISPLACED TO THE LEFT INCOMPLETE RIGHT BUNDLE BRANCH BLOCK QRS(T) CONTOUR ABNORMALITY CONSIDER INFERIOR MYOCARDIAL DAMAGE T ABNORMALITY IN HIGH LATERAL LEADS ABNORMAL ECG RI6.01 No previous ECG available for comparison
[2019-09-16] MEDS ORDERED: IV NORMAL SALINE 50ML 50 ML ONE (00:05)
[2019-09-16] MEDS ORDERED: cefTRIAXone SODIUM 1 GM VIAL ONE (00:05)
[2019-09-16] MEDS ORDERED: cloNIDine TTS-2 1 PATCH PATCH TD ONE (00:15)
[2019-09-16] MEDS: IV RINGERS SOLUTION,LACTATED 1,000 ML IV SCH ×5 (00:33→19:45)
--- NOTE | 2019-09-16 00:41 | NUR ---
ADMISSION: The patient, AUGUSTINA CERVANTES, 49 y/o, M admitted by ADRIÁN ELIZABETH MD, was given written information regarding hospital policies, unit procedures and contact persons. Pt arrived to room 120 via gurney, accompanied by [facility] and nursing sup. Pt A/Ox4, ambulatory. Pt c/o Left flank/abd pain and constipation. VS checked, BP elevated at 185/118. Clonidine patch placed per order. PMH and home meds reviewed. Pt NPO at this time. Call light in reach. Valuables were checked and logged, left in room with patient.
[2019-09-16 02:08] LABS: INFLUENZA A PATIENT NEGATIVE (NEGATIVE); INFLUENZA B PATIENT NEGATIVE (NEGATIVE)
[2019-09-16 06:05] LABS: BASO # 0.1 x10^3/uL (0.0-0.2); BASO % 2 % (0-3); EOS # 0.3 x10^3/uL (0.0-0.7); EOS % 3 % (0-3); HEMATOCRIT 42.7 % (39.0-53.0); HEMOGLOBIN 13.8 g/dL (13.0-17.5); LYMPH # 2.3 x10^3/uL (1.0-4.8); LYMPH % 27 % (24-48); MEAN CORPUSCULAR HEMOGLOBIN 25 pg (25-35); MEAN CORPUSCULAR HGB CONC 32 g/dL (31-37); MEAN CORPUSCULAR VOLUME 78 fL (79-100); MONO # 0.5 x10^3/uL (0.0-1.1); MONO % 5 % (0-9); NEUT # 5.4 x10^3uL (1.8-7.7); NEUT % 63 % (31-73); PLATELET COUNT 239 x10^3/uL (140-400); RED BLOOD COUNT 5.47 x10^6/uL (4.30-5.70); RED CELL DISTRIBUTION WIDTH 13.8 % (11.5-14.5); WHITE BLOOD COUNT 8.6 x10^3/uL (4.0-11.0)
[2019-09-16 06:16] LABS: CALCIUM 9.4 mg/dL (8.5-10.1); CREATININE 0.9 mg/dL (0.7-1.3); GFR 89.3; POTASSIUM 3.9 mmol/L (3.5-5.1)
[2019-09-16] MEDS ORDERED: IPRATRPIUM/ALBUTEROL 0.5/2.5MG 3 ML NEBU. NEB SCH (08:00)
[2019-09-16] MEDS ORDERED: IPRATRPIUM/ALBUTEROL 0.5/2.5MG 3 ML NEBU. NEB PRN (08:00)
[2019-09-16] MEDS ORDERED: METHYLNALTREXONE 12 MG/0.6 ML VIAL. SQ ONE (09:30)
--- NOTE | 2019-09-16 10:53 | NUR ---
NURSING NOTE PT WAS IN BED THIS AM UPON ASSESSMENT. PT C/O CONSTIPATION BUT THAT HE DID HAVE A SMALL BM ON 09-15. PT IS CURRENTLY NPO. PT DENIES ANY PAIN OR NAUSEA. PT IS CURRENTLY BEING TREATED WITH FLAGYL AND ROCEPHIN. PT BLOOD PRESSURE WAS HIGH THIS AM. DR ELIZABETH AWARE. ORDER OBTAINED FOR RELISTOR. PT OFFERED SHOWER AND STATES HE WILL TAKE A SHOWER AFTER LUNCH. PT ENCOURAGED TO CALL IF HE NEEDS ANYTHING OR TO LET THIS NURSE KNOW IF HE STARTS HAVING PAIN. ARCHIE KURTZ.
--- NOTE | 2019-09-16 18:12 | HP ---
ADMIT DATE: 09/15/2019 HISTORY OF PRESENT ILLNESS: A 49-year-old male came in through the Emergency Room late last night with problems with severe abdominal pain. The patient has been having nausea and vomiting, has a history of diverticulitis. The patient was basically seen in the Emergency Room. He was noted to have constipation. He has been refusing to get a colonoscopy. He has been noted several times to get that. The patient was admitted for diverticulitis for IV antibiotic therapy. The pain was approximately 9/10 in the left lower quadrant area. PAST MEDICAL HISTORY: Includes balloon arthroplasty, coronary artery disease, hypertension, acute bronchitis, sleep apnea, colitis, irritable bowel syndrome, diabetes. The patient is encouraged to stop smoking numerous times. IMMUNIZATION: For flu and pneumococcal up-to-date. ALLERGIES: No known drug allergies. FAMILY HISTORY: Diabetes, cardiovascular disease, hypertension. HOME MEDICATIONS: Reconciled in the usual fashion. SOCIAL HISTORY: The patient as noted has about 40-50 pack year history of smoking, but encouraged to stop smoking. Occasional alcohol use. No hard drug use. REVIEW OF SYSTEMS: Positive for nausea, vomiting. Denies any headaches, visual changes, blurred vision, double vision. Denies any melena, hematochezia, hematemesis and neurologically baseline except for his abdominal pain that he has in the left lower quadrant area, which is fairly significant. PHYSICAL EXAMINATION: GENERAL: Pleasant white male, in moderate amount of distress. VITAL SIGNS: Blood pressure 160/80, respiratory rate 20, pulse 78, afebrile. HEENT: Atraumatic, normocephalic. Eyes: PERRLA without jaundice. The mouth and throat were normal. NECK: Supple, without JVD or thyromegaly. LUNGS: Clear to auscultation. CARDIOVASCULAR: Regular sinus rhythm. ABDOMEN: Soft. There is nontender except for the left lower quadrant area. There was guarding and proximally pain of 8-9/10. The patient had no rebounding, positive bowel sounds. EXTREMITIES: No clubbing, cyanosis, nor edema. NEUROLOGIC: The patient was alert and oriented x 3. LABORATORY DATA: White count 11.5, hemoglobin 15, hematocrit 45. Chemistries except for the sugar potassium was low at 3.3. Blood sugars 230-240. BUN and creatinine were normal. Albumin slightly low at 3. UA shows 6-10 red blood cells. Toxicology negative. Serology negative for flu. Coag is basically stable. IMPRESSION: Therefore, acute diverticulitis with recurrence of diverticulitis, hypokalemia, type 2 diabetes, mild protein malnutrition. PLAN: The patient will continue on IV Rocephin and metronidazole. Continue to monitor him carefully. Recommend colonoscopy. Stop smoking as well. ADRIÁN ELIZABETH MD DR: LELAND/tammy JOB#: [id number] / [id number]
[2019-09-16] MEDS ORDERED: DEXTROSE 50% 25 GM / 50ML DISP.SYRIN. IV PRN (19:30)
[2019-09-16] MEDS: MAGNESIUM HYDROXIDE 2,400 MG/30 ML ORAL.SUSP. PO SCH (20:10)
[2019-09-16] MEDS: LACTOBACILLUS RHAMNOSUS GG 1 CAPSULE. PO SCH (20:10)
[2019-09-17] MEDS: IV RINGERS SOLUTION,LACTATED 1,000 ML IV SCH ×2 (01:45→05:45)
[2019-09-17 05:08] VITALS: BP 156/95
[2019-09-17] MEDS: LACTOBACILLUS RHAMNOSUS GG 1 CAPSULE. PO SCH ×2 (08:19→21:13)
[2019-09-17] MEDS: INSULIN LISPRO 300 UNITS/3 ML VIAL. SQ SCH ×3 (08:23→17:00)
[2019-09-17] MEDS ORDERED: LISINOPRIL 5 MG TABLET. PO SCH (09:00)
[2019-09-17] MEDS: LISINOPRIL 20 MG TABLET PO SCH (09:29)
[2019-09-17 10:20] VITALS: BP 161/96
[2019-09-17 14:34] VITALS: BP 147/86
--- NOTE | 2019-09-17 15:35 | PN ---
DATE: SUBJECTIVE: The patient is in with diverticulitis of his left sigmoid area, which is recurrent. Apparently, the patient is making fairly good progress in his situation. The patient's vital signs look basically stable, still running a little bit high. OBJECTIVE: VITAL SIGNS: Blood pressure 156/95, respiratory rate 20, pulse 60, afebrile. 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 LUNGS: Clear. CARDIOVASCULAR: Stable. ABDOMEN: Markedly tender in his left lower quadrant, although it has been reduced to about 4 or 5. He will probably be advised we will continue with IV antibiotic therapy for now until we can switch him over. We will also increase his blood pressure medications as his blood pressure is certainly, for diabetic, is still too elevated. We could also discontinue his fluids and make further evaluation with clear liquid diet and then continued IV antibiotic therapy. ADRIÁN ELIZABETH MD DR: LELAND/tammy JOB#: [id number] / [id number]
--- NOTE | 2019-09-17 15:40 | NUR ---
NURSING NOTES: PATIENT IN BED AT TIME OF ASSESSMENT THIS AM. PATIENT IS ALERT AND ORIENTED X4. NO C/O PAIN OR DISCOMFORTS OFFERED FROM PATIENT THIS SHIFT. PATIENT STATES HE STILL HAS NOT HAD A BM. DR. ELIZABETH NOTIFIED. PATIENT'S BLOOD PRESSURE ELEVATED THIS AM, SCHEDULED LISINOPRIL GIVEN WITH NO CHANGE IN BP. NEW ORDER FOR LISINOPRIL AT 20MG DAILY STARTED THIS AM PER ORDERS FROM DR. ELIZABETH. PATIENT IS CALM AND COOPERATIVE WITH STAFF. NO CONCERNS OFFERED. WILL CONTINUE TO MONITOR.
[2019-09-17 19:18] VITALS: BP 145/84
[2019-09-17] MEDS: MAGNESIUM HYDROXIDE 2,400 MG/30 ML ORAL.SUSP. PO SCH (21:13)
[2019-09-17 22:29] VITALS: BP 149/88
[2019-09-18 05:06] VITALS: BP 144/88
--- NOTE | 2019-09-18 06:33 | NUR ---
Pt AO x 4. Pt states mild tenderness in abdomen. Ambulates to toilet independently. Pt slept off and on between antibiotic therapy. Will continue to monitor.
[2019-09-18] MEDS: INSULIN LISPRO 300 UNITS/3 ML VIAL. SQ SCH (08:00)
[2019-09-18] MEDS: LACTOBACILLUS RHAMNOSUS GG 1 CAPSULE. PO SCH (08:08)
[2019-09-18] MEDS: LISINOPRIL 20 MG TABLET PO SCH (08:09)
[2019-09-18] MEDS ORDERED: GLYCERIN ADULT 1 SUPP.RECT. PR PRN (10:30)
[2019-09-18] MEDS ORDERED: amLODIPine BESYLATE 10 MG TABLET PO SCH (11:00)
--- NOTE | 2019-09-18 11:02 | DS ---
DATE OF DISCHARGE: HOSPITAL COURSE: An 49-year-old male in with a problem of diverticulitis, recurrent. The patient has been noted that he needs to get a colonoscopy in approximately 2 months. In any case, the patient made good progress on IV antibiotic therapy. His white count came down. Hemoglobin stabilized at 13.8. Blood sugars were monitored and brought under better control. He is a diabetic, low albumin of 3. Other than that, looked pretty good. Did have 6-10 red blood cells in his urine, needs to be followed up on that. In any case, the patient continued to make good progress on IV antibiotics. He will be switched over to oral antibiotics, discharged home. Low fiber diet for 2 weeks, then go back to high fiber. Follow up in 7-10 days. Work release given. IMPRESSION: Diverticulitis, recurrent of the sigmoid colon as well as hematuria, constipation, nonobstructing renal calculi noted. Mild protein malnutrition, type 2 diabetes, morbid obesity. PLAN: The patient will be discharged home. Follow up as an outpatient as noted above with all the recommendations there. ADRIÁN ELIZABETH MD DR: LELAND/tammy JOB#: [id number] / [id number]
[2019-09-18 11:37] VITALS: BP 158/95
--- NOTE | 2019-09-18 12:10 | NUR ---
NURSING NOTES: PATIENT DISCHARGED TO HOME. PATIENT GIVEN DISCHARGE INSTRUCTIONS AND VOICED UNDERSTANDING. ALL PATIENT BELONGINGS SENT HOME WITH PATIENT. NO COMPLAINTS OFFERED BY PATIENT. PATIENT ASSISTED SELF OUT OF BUILDING TO FAMILY VEHICLE.
== END 2019-09-18 12:14 | disposition home or self-care (01) | DRG 392 ==
LOC: ER 21:24 → 1 SOUTH 23:15
PROVIDERS: ADMIT Family Medicine; ATTEND Family Medicine
DX: K57.92 Diverticulitis of intestine, part unspecified, without perforation or abscess without bleeding (principal); E44.1 Mild protein-calorie malnutrition; E78.5 Hyperlipidemia, unspecified; I25.10 Atherosclerotic heart disease of native coronary artery without angina pectoris; D72.829 Elevated white blood cell count, unspecified; Z83.3 Family history of diabetes mellitus; Z82.49 Family history of ischemic heart disease and other diseases of the circulatory system; Z68.35 Body mass index [BMI] 35.0-35.9, adult; N20.0 Calculus of kidney; K59.00 Constipation, unspecified; E66.01 Morbid (severe) obesity due to excess calories; E11.9 Type 2 diabetes mellitus without complications; I10 Essential (primary) hypertension; F17.200 Nicotine dependence, unspecified, uncomplicated; E87.6 Hypokalemia; F41.9 Anxiety disorder, unspecified; K21.9 Gastro-esophageal reflux disease without esophagitis; K58.9 Irritable bowel syndrome, unspecified; G47.30 Sleep apnea, unspecified
CPT/HCPCS: 36415; 74022; 74176; 80048; 80076; 80307; 81001; 82150; 82550; 82947; 83690; 84484; 85025; 85610; 85730; 87804; 93005; 96361; 96374; 96375; J0696; J1815; J2212; J2405; J3490; J7120; 99285-25; J7030

== ENCOUNTER 2020-02-08 16:15 | Emergency (ER) | payer BC ==
[~2020-02-08] VITALS: Ht 180.3 cm; Wt 109.0 kg
[~2020-02-08 16:15] MED LIST changes: -FLUO20CA19 PO; +FLUO20CA20 PO
[2020-02-08] MEDS ORDERED: ONDANSETRON PF 4 MG/2 ML VIAL. ONE (16:27)
[2020-02-08] MEDS ORDERED: IV NORMAL SALINE 1,000ML 1,000 ML IV ONE (16:30)
[2020-02-08] MEDS ORDERED: IOHEXOL 300 MG/ML 75 ML VIAL. IV ONE (16:30)
[2020-02-08] MEDS ORDERED: MORPHINE SULFATE 4 MG/ML DISP.SYRIN. IV ONE (16:45)
[2020-02-08] MEDS ORDERED: ONDANSETRON PF 4 MG/2 ML VIAL. IVP ONE ×2 (16:45→17:30)
[2020-02-08 16:50] LABS: BASO % 0 % (0-3); EOS # 0.1 x10^3/uL (0.0-0.7); EOS % 1 % (0-3); HEMATOCRIT 47.1 % (39.0-53.0); HEMOGLOBIN 15.7 g/dL (13.0-17.5); LYMPH # 3.3 x10^3/uL (1.0-4.8); LYMPH % 29 % (24-48); MEAN CORPUSCULAR HEMOGLOBIN 26 pg (25-35); MEAN CORPUSCULAR HGB CONC 33 g/dL (31-37); MEAN CORPUSCULAR VOLUME 78 fL (79-100); MONO # 0.5 x10^3/uL (0.0-1.1); MONO % 4 % (0-9); NEUT # 7.3 x10^3uL (1.8-7.7); NEUT % 65 % (31-73); PLATELET COUNT 275 x10^3/uL (140-400); RED BLOOD COUNT 6.06 x10^6/uL (4.30-5.70); RED CELL DISTRIBUTION WIDTH 14.4 % (11.5-14.5); WHITE BLOOD COUNT 11.2 x10^3/uL (4.0-11.0)
--- NOTE | 2020-02-08 16:51 | PHYS DOC ---
Past History Past Medical History: Anxiety, Bronchitis, CAD, Constipation, Diabetes, GERD, IBS Additional Past Medical Histor: GASTROENTERITIS Past Surgical History: No Surgical History Smoking: Cigarettes, Less than 1pk/day Alcohol Use: None Drug Use: None General Adult EDM: Chief Complaint: NAUSEA/VOMITING/DIARRHEA HPI: HPI: 49-year-old male presents with abdominal pain and vomiting. The pain is a deep cramping. He had a colonoscopy yesterday. Today he has had multiple episodes of vomiting and central abdominal pain. He was sent here for evaluation by his GI physician. His endoscopy report does mention "CT abdomen and pelvis to further assess". He was found to have "nonbleeding internal hemorrhoids, diverticulosis, and moderate inflammation of the sigmoid colon secondary to colitis which was biopsied." Patient denies fever or chills. Review of Systems: Review of Systems: Constitutional: Denies fever or chills Eyes: Denies change in visual acuity HENT: Denies nasal congestion or sore throat Respiratory: Denies cough or shortness of breath Cardiovascular: Denies chest pain or edema GI: Central abdominal pain, nausea, vomiting. Denies bloody stools or diarrhea : Denies dysuria Musculoskeletal: Denies back pain or joint pain Integument: Denies rash Neurologic: Denies headache, focal weakness or sensory changes Endocrine: Denies polyuria or polydipsia Lymphatic: Denies swollen glands Psychiatric: Denies depression or anxiety Heart Score: Risk Factors: Risk Factors: DM, Current or recent (<one month) smoker, HTN, HLP, family history of CAD, obesity. Risk Scores: Score 0 - 3: 2.5% MACE over next 6 weeks - Discharge Home Score 4 - 6: 20.3% MACE over next 6 weeks - Admit for Clinical Observation Score 7 - 10: 72.7% MACE over next 6 weeks - Early Invasive Strategies Current Medications: Current Meds: Current Medications Medications (Trade) Dose Ordered Sig/Brenda Start Time Stop Time Status Last Admin Dose Admin Iohexol (Omnipaque 300 Mg/ml) 75 ml 1X ONCE 02/08/20 16:30 02/08/20 16:31 Morphine Sulfate (Morphine 4mg Syringe) 4 mg 1X ONCE 02/08/20 16:45 02/08/20 16:46 Ondansetron HCl (Zofran) 4 mg 1X ONCE 02/08/20 16:45 02/08/20 16:46 Sodium Chloride 1,000 ml @ 1,000 mls/hr 1X ONCE 02/08/20 16:30 02/08/20 17:29 Allergies: Allergies: Allergies Coded Allergies Type Severity Reaction Last Updated Verified No Known Drug Allergies 08/26/18 No Physical Exam: PE: Constitutional: Well developed, well nourished, no acute distress, non-toxic appearance. [] HENT: Normocephalic, atraumatic, bilateral external ears normal, oropharynx moist, no oral exudates, nose normal. [] Eyes: PERRLA, EOMI, conjunctiva normal, no discharge. [] Neck: Normal range of motion, no tenderness, supple, no stridor. [] Cardiovascular: Heart rate regular rhythm, no murmur [] Lungs & Thorax: Bilateral breath sounds clear to auscultation [] Abdomen: Bowel sounds normal, soft, generalized tenderness, no masses, no pulsatile masses. [] Skin: Warm, dry, no erythema, no rash. [] Back: No tenderness, no CVA tenderness. [] Extremities: No tenderness, no cyanosis, no clubbing, ROM intact, no edema. [] Neurologic: Alert and oriented X 3, normal motor function, normal sensory function, no focal deficits noted. [] Psychologic: Affect normal, judgement normal, mood normal. [] EKG: EKG: [] Radiology/Procedures: Radiology/Procedures: [] Impressions: CT scan of the abdomen and pelvis with contrast 02/08/2020 CLINICAL HISTORY: Abdominal pain. Colonoscopy yesterday. TECHNIQUE: After the intravenous administration of 75 cc of Omnipaque 300, contiguous, 5 mm axial sections were obtained through the abdomen and pelvis. One or more of the following individualized dose reduction techniques were utilized for this study: 1. Automated exposure control. 2. Adjustment of the mA and/or kV according to patient size. 3. Use of iterative reconstruction technique. FINDINGS: Comparison study is dated 09/15/2019. Images through the lung bases demonstrate minimal dependent subsegmental atelectasis bilaterally. A linear band of subsegmental atelectasis is seen involving the left lower lobe. The liver, spleen, pancreas, adrenal glands and left kidney are within normal limits. Several nonobstructing calculi are seen scattered throughout the right kidney. These measure 1 to 2 mm in size. A 5 mm rounded low-attenuation lesion is involving the midpole of the right kidney. This likely represents a cyst. No further imaging workup is recommended. The abdominal aorta tapers normally. Atherosclerotic calcification of the abdominal aorta and its branches is noted. The gallbladder is contracted. No free fluid or free air is seen within the abdomen. Air and stool are seen throughout the colon. The appendix is well-visualized and is within normal limits. A focal area of wall thickening is seen involving the sigmoid colon. Increased density is seen within the adjacent fat. Enlarged mesenteric lymph nodes are seen within the mesenteric fat which measure 5 mm to 1 cm in size. These findings could reflect a focal colitis. A colonic neoplasm (colon cancer) is not excluded. No abnormal fluid collection is seen to suggest evidence of an abscess Images through the pelvis demonstrate the urinary bladder to be contracted. Calcifications are seen within the pelvis consistent with phleboliths. No free fluid is seen. Degenerative changes are seen involving the lower thoracic and throughout the lumbar spine along with both hips. IMPRESSION: A focal area of wall thickening is again seen involving the mid sigmoid colon. Increased density is seen within the adjacent fat. Enlarged mesenteric lymph nodes are seen surrounding this portion of the sigmoid colon. These findings could reflect reflect a focal colitis. A colonic neoplasm is not excluded. There is no evidence of an abscess. Electronically signed by: Neal Camarillo MD (02/08/2020 5:11 PM) [id number] DICTATED AND SIGNED BY: NEAL CAMARILLO MD DATE: 02/08/20 171 CC: LEATHA GOMEZ DO; NAME,ROMEO SNEED ~ Course & Med Decision Making: Course & Med Decision Making Pertinent Labs and Imaging studies reviewed. (See chart for details) The patient's labs are unremarkable. His CT scan shows wall thickening of the mid sigmoid which could be acute colitis but colon cancer cannot be ruled out. This is similar appearance to a CT scan of August of this year. See official report for more details. Patient also has a significant amount of air in the colon. I will treat him with Augmentin for 10 days and give him a prescription of [place] 5/325 for his pain. This will cover possible infective colitis as well as treat his pain for now. He already has follow-up scheduled with GI and biopsies were taken. He is stable for discharge at this time. [] Dragon Disclaimer: Dragon Disclaimer: This electronic medical record was generated, in whole or in part, using a voice recognition dictation system. Departure Departure: Impression: Primary Impression: Colitis Additional Impression: Abdominal pain, acute, generalized Disposition: 01 HOME/RESIDENCE PRIOR TO ADM Condition: STABLE Referrals: NAME,ROMEO SNEDE (PCP) Patient Instructions: Colitis Scripts Ondansetron (ONDANSETRON ODT) 4 Mg Tab.rapdis 1 TAB PO PRN Q6-8HRS PRN for VOMITING, #16 TAB Prov: LEATHA GOMEZ DO 02/08/20 Hydrocodone Bit/Acetaminophen (NORCO 5-325 TABLET) 1 Each Tablet 1 TAB PO PRN Q6HRS PRN for PAIN, #10 TAB 0 Refills Prov: LEATHA GOMEZ DO 02/08/20 Amoxicillin/Potassium Clav (AUGMENTIN 875-125 TABLET) 1 Each Tablet 1 TAB PO BID for colitis for 10 Days, #20 TAB 0 Refills Prov: LEATHA GOMEZ DO 02/08/20 Justification of Admission: Justification of Admission: Justification of Admission Dx: N/A LEATHA GOMEZ DO Feb 08, 2020 16:51
[2020-02-08 17:02] LABS: GFR 79.1; POTASSIUM 3.9 mmol/L (3.5-5.1)
[2020-02-08 17:08] LABS: ALBUMIN 3.9 g/dL (3.4-5.0); ALBUMIN/GLOBULIN RATIO 0.9 (1.0-1.7); TOTAL BILIRUBIN 0.4 mg/dL (0.2-1.0); TOTAL PROTEIN 8.1 g/dL (6.4-8.2)
--- NOTE | 2020-02-08 17:14 | RAD ---
CT scan of the abdomen and pelvis with contrast 02/08/2020 CLINICAL HISTORY: Abdominal pain. Colonoscopy yesterday. TECHNIQUE: After the intravenous administration of 75 cc of Omnipaque 300, contiguous, 5 mm axial sections were obtained through the abdomen and pelvis. One or more of the following individualized dose reduction techniques were utilized for this study: 1. Automated exposure control. 2. Adjustment of the mA and/or kV according to patient size. 3. Use of iterative reconstruction technique. FINDINGS: Comparison study is dated 09/15/2019. Images through the lung bases demonstrate minimal dependent subsegmental atelectasis bilaterally. A linear band of subsegmental atelectasis is seen involving the left lower lobe. The liver, spleen, pancreas, adrenal glands and left kidney are within normal limits. Several nonobstructing calculi are seen scattered throughout the right kidney. These measure 1 to 2 mm in size. A 5 mm rounded low-attenuation lesion is involving the midpole of the right kidney. This likely represents a cyst. No further imaging workup is recommended. The abdominal aorta tapers normally. Atherosclerotic calcification of the abdominal aorta and its branches is noted. The gallbladder is contracted. No free fluid or free air is seen within the abdomen. Air and stool are seen throughout the colon. The appendix is well-visualized and is within normal limits. A focal area of wall thickening is seen involving the sigmoid colon. Increased density is seen within the adjacent fat. Enlarged mesenteric lymph nodes are seen within the mesenteric fat which measure 5 mm to 1 cm in size. These findings could reflect a focal colitis. A colonic neoplasm (colon cancer) is not excluded. No abnormal fluid collection is seen to suggest evidence of an abscess Images through the pelvis demonstrate the urinary bladder to be contracted. Calcifications are seen within the pelvis consistent with phleboliths. No free fluid is seen. Degenerative changes are seen involving the lower thoracic and throughout the lumbar spine along with both hips. IMPRESSION: A focal area of wall thickening is again seen involving the mid sigmoid colon. Increased density is seen within the adjacent fat. Enlarged mesenteric lymph nodes are seen surrounding this portion of the sigmoid colon. These findings could reflect reflect a focal colitis. A colonic neoplasm is not excluded. There is no evidence of an abscess. Electronically signed by: Neal Marques MD (02/08/2020 5:11 PM) [id number]
[2020-02-08 17:20] VITALS: BP 184/102
[2020-02-08] MEDS ORDERED: HYDR-3165 PO (17:30)
[2020-02-08] MEDS ORDERED: AMOX1TAB61 PO (17:30)
[2020-02-08] MEDS ORDERED: ONDA4TAB12 PO (17:30)
[2020-02-08 17:46] LABS: BILIRUBIN,URINE NEG (NEG); CLARITY,URINE CLEAR; COLOR,URINE YELLOW; GLUCOSE,URINE NEG (NEG); NITRITE,URINE NEG (NEG); UROBILINOGEN,URINE 0.2 mg/dL (0.2 mg/dL)
[2020-02-08 17:47] LABS: BACTERIA,URINE 0 /HPF (0-FEW); HYALINE CASTS, URINE FEW /HPF; SQUAMOUS EPITHELIAL CELL,UR FEW /LPF
== END 2020-02-08 17:42 | disposition home or self-care (01) ==
LOC: ER 16:15
DX: K52.9 Noninfective gastroenteritis and colitis, unspecified (principal); R10.84 Generalized abdominal pain; E11.9 Type 2 diabetes mellitus without complications; I25.10 Atherosclerotic heart disease of native coronary artery without angina pectoris; K21.9 Gastro-esophageal reflux disease without esophagitis; K58.9 Irritable bowel syndrome, unspecified; F17.210 Nicotine dependence, cigarettes, uncomplicated
CPT/HCPCS: 36415; 74177; 80053; 81001; 85025; 96361; 96374; 96375; 96376; 99285; J2270; J2405; Q9967; J7030